=== PATIENT | male | born 1950 | race Caucasian/White ===

== ENCOUNTER → 2018-12-31 11:21 | Outpatient (CLI) | payer MEDICARE, BC, SELFPAY ==
[2018-12-31 11:51] LABS: Add Manual Diff / Slide Review NO; Basophils Absolute Auto 0 /uL (0-100); Basophils Percent Auto 0.3 % (0-2); Eosinophils Absolute Auto 300 /uL (0-450); Eosinophils Percent Auto 4.8 % (2-4); Hematocrit 46.6 % (41-53); Lymphocytes Absolute Auto 1700 /uL (1100-4500); Lymphocytes Percent Auto 31.3 % (25-40); Mean Corpuscular HGB Conc 34.2 % (30-36); Mean Corpuscular Hemoglobin 31.2 PG (26-34); Mean Corpuscular Volume 91.2 fL (80-100); Monocytes Absolute Auto 400 /uL (0-900); Neutrophils Absolute Auto 3000 /uL (1500-7000); Neutrophils Percent Auto 55.6 % (50-75); Platelet Count 248 X10^3/uL (150-400); Red Blood Cell Count 5.12 X10^6/uL (4.5-5.9); Red Cell Distribution Width 13.6 % (11.6-14.8); White Blood Cell Count 5.5 X10^3/uL (4.5-11.0)
[2018-12-31 12:35] LABS: BUN Creatinine Ratio 25.6 (6-22); Blood Urea Nitrogen 23 mg/dL (9-20); Calcium 9.5 mg/dL (8.4-10.2); Carbon Dioxide 28 mmol/L (22-32); Chloride 101 mmol/L (98-107); Estimated Glomerular Filt Rate > 60.0 mL/min (>60); Glucose 101 mg/dL (80-110); HEMOLYSIS < 15 (0-50); Potassium 4.8 mmol/L (3.4-5.1); Sodium 138 mmol/L (137-145)
== END ==
DX: N50.819 Testicular pain, unspecified (principal); G89.29 Other chronic pain; Z01.818 Encounter for other preprocedural examination
CPT/HCPCS: 36415; 80048; 85025; 93005

== ENCOUNTER → 2019-02-23 09:22 | Outpatient (CLI) | payer MEDICARE, BC, SELFPAY ==
[2019-02-23 11:01] LABS: BUN Creatinine Ratio 28.8 (6-22); Blood Urea Nitrogen 23 mg/dL (9-20); Calcium 9.1 mg/dL (8.4-10.2); Carbon Dioxide 26 mmol/L (22-32); Chloride 103 mmol/L (98-107); Estimated Glomerular Filt Rate > 60.0 mL/min (>60); Glucose 107 mg/dL (80-110); HEMOLYSIS < 15 (0-50); Potassium 4.2 mmol/L (3.4-5.1); Sodium 137 mmol/L (137-145)
== END ==
PROVIDERS: Visit Provider Internal Medicine
DX: T70.29XA Other effects of high altitude, initial encounter (principal); R06.02 Shortness of breath; R03.0 Elevated blood-pressure reading, without diagnosis of hypertension
CPT/HCPCS: 36415; 80048

== ENCOUNTER → 2019-02-27 14:10 | Outpatient (CLI) | payer MEDICARE, BC, SELFPAY ==
--- NOTE | 2019-02-27 | DI.RAD.S_ITS ---
PROCEDURE: XR CHEST 2V INDICATIONS: SOB TECHNIQUE: 2 views of the chest were acquired. COMPARISON: [facility], , CHEST 2 VIEW, 04/22/2017, 12:42. FINDINGS: Surgical changes and devices: None. Lungs and pleura: Lungs are clear. No pleural effusions or pneumothorax. Mediastinum: Mediastinal contours are normal. Heart size is normal. Bones and chest wall: No suspicious bony abnormalities. Soft tissues appear unremarkable. IMPRESSION: No acute pulmonary process. Dictated by: Shaila Howard M.D. on 02/27/2019 at 16:38 Approved by: Shaila Howard M.D. on 02/27/2019 at 16:39
[2019-02-27 16:03] LABS: B Type Natriuretic Peptide < 100 (<100)
== END ==
PROVIDERS: PCP Physician Assistant; Visit Provider Internal Medicine
DX: T70.29XA Other effects of high altitude, initial encounter (principal); R06.02 Shortness of breath
CPT/HCPCS: 36415; 71046; 83880

== ENCOUNTER → 2019-03-01 07:56 | Outpatient (CLI) | payer MEDICARE, BC, SELFPAY ==
--- NOTE | 2019-03-01 | DI.ECHO.S_ITS ---
[place] +---------+ Hospital +---------+ : : [address] : [address] : : : : [id number] : : : : Phone: [phone]+ Echocardiogram Report + + :Name: LAURA SANCHEZ Study Date: 03/01/2019 Height: 72 in : :[facility] Exam Location: IS Weight: 210 lb : : Gender: Male BSA: 2.2 m2 : :: 1950 Age: 68 yrs BP: 142/95 mmHg: :Reason For Study: SOB : :Ordering Physician: Charlotte Ramos Performed By: Cecilia Page : + + Interpretation Summary Left ventricular wall thickness is mildly increased. The left ventricle is hyperdynamic. The ejection fraction is estimated to be 70-75%. Diastolic parameters suggest a relaxation abnormality of the left ventricle, consistent with probable normal filling pressures. The right ventricle is normal in size and function. Pulmonary artery pressures cannot be estimated because of the lack of a measurable TR jet velocity. Both atria are normal in size. There is no significant valvular heart disease. The aortic root is mildly dilated. The ascending aorta is moderately enlarged. Procedure: A two-dimensional transthoracic echocardiogram with color flow and Doppler was performed. The study quality was technically adequate. There is no prior echocardiogram noted for this patient. The patient was in normal sinus rhythm during the exam. Left Ventricle: The left ventricle is normal in size. Left ventricular wall thickness is mildly increased. The left ventricle is hyperdynamic. The ejection fraction is estimated to be 70-75%. Diastolic parameters suggest a relaxation abnormality of the left ventricle, consistent with probable normal filling pressures. Right Ventricle: The right ventricle is normal in size and function. Atria: Both atria are normal in size. There is no Doppler evidence for an interatrial shunt. Mitral Valve: The mitral valve is grossly normal. There is trace mitral regurgitation. Aortic Valve: The aortic valve is grossly normal. The aortic valve opens well. There is mild aortic valve sclerosis. No aortic regurgitation is present. Tricuspid Valve: The tricuspid valve is not well visualized, but is grossly normal. No tricuspid regurgitation. Pulmonary artery pressures cannot be estimated because of the lack of a measurable TR jet velocity. Pulmonic Valve: The pulmonic valve is not well visualized. There is no significant valvular heart disease. Great Vessels: The aortic root is mildly dilated. The ascending aorta is moderately enlarged. The aortic arch is normal in size. The pulmonary is not well visualized. The IVC is dilated (diameter is greater than 2.1 cm) yet it collapses greater than 50% with a sniff. This suggests a right atrial pressure of 8 mm Hg. Pericardium/ Pleura There is no pericardial effusion. There is no pleural effusion. MMode/2D Measurements & Calculations LVIDd: 4.8 cm Ao root diam: 4.5 cm LVIDs: 3.4 cm asc Aorta Diam: 4.4 cm FS: 29.9 % Ao Arch Diam (Prox Trans): 2.8 cm IVSd: 1.2 cm LVPWd: 1.2 cm LV christine. diameter/BSA (cm/m^2): 2.2 LV sys. diameter/BSA (cm/m^2): 1.5 LA A2 area: 21.9 cm2 RA long axis: 5.5 cm LA A4 area: 20.6 cm2 RA area: 15.2 cm2 LA length (vol): 5.5 cm RA vol: 35.8 ml LA vol: 69.6 ml RA : 16.5 ml/m2 LA vol index: 32.0 ml/m2 IVC diam: 2.5 cm RVD1 (basal): 3.7 cm RVD2 (mid): 4.0 cm Doppler Measurements & Calculations Ao V2 max: 170.4 cm/sec LVOT Max Javier: 116.7 cm/sec Ao V2 mean: 110.9 cm/sec LV V1 max P.4 mmHg Ao max P.6 mmHg LV V1 VTI: 23.1 cm Ao mean P.5 mmHg sev ratio: 0.85 Ao V2 VTI: 27.1 cm MV E max javier: 55.7 cm/sec PA V2 max: 74.6 cm/sec MV A max javier: 95.1 cm/sec PA V2 mean: 56.1 cm/sec MV E/A: 0.59 PA mean P.3 mmHg Med Peak E' Javier: 5.1 cm/sec PA Accel Time: 0.04 sec E/E' med: 11.0 Lat Peak E' Javier: 8.8 cm/sec E/E' lat: 6.3 E/e' average: 8.7 MV dec time: 0.29 sec MV P1/2t: 86.5 msec MV P1/2t max javier: 57.1 cm/sec MVA(P1/2t): 2.5 cm2 Reading Physician:06:16 PM
== END ==
PROVIDERS: PCP Physician Assistant; Visit Provider Internal Medicine
DX: I35.8 Other nonrheumatic aortic valve disorders (principal); R06.02 Shortness of breath
CPT/HCPCS: 93306

== ENCOUNTER → 2019-05-06 09:41 | Outpatient (CLI) | payer MEDICARE, BC, SELFPAY ==
[2019-05-06 12:11] LABS: Prostate Specific Antigen 2.34 ng/mL (0.10-4.00)
== END ==
PROVIDERS: PCP Physician Assistant; Visit Provider Urology
DX: Z12.5 Encounter for screening for malignant neoplasm of prostate (principal)
CPT/HCPCS: 36415; 84153; G0103

== ENCOUNTER 2019-07-20 22:27 | Emergency (ER) | payer MEDICARE, BC, SELFPAY ==
[2019-07-20] VITALS (8 sets, daily range): BP systolic 127–181; BP diastolic 64–111; PULSE 73–86; RESP 15–18; O2SAT 94–99; BMI 28.8
--- NOTE | 2019-07-20 22:28 | ED_ITS ---
HPI - Chest Pain General Chief Complaint: Chest Pain Stated Complaint: chest pain Time Seen by Provider: 07/20/19 22:28 Source: patient and family Mode of arrival: Ambulatory Limitations: no limitations History of Present Illness HPI narrative: 69-year-old male former smoker with history of hypertension and hyperlipidemia presents with his in the chief complaint of 2 days of gradually worsening anterior chest pressure with radiation across his chest and into his left shoulder. His symptoms worsened with exertion and improved with rest. Additional cardiac equivalent include shortness of breath, fatigue and nausea which all worsen with exertion. At most his discomfort was rated as a 7 or 8/10, on arrival his symptoms worsened while walking in from the registration desk. He denies any fever or chills MD complaint: chest pain Onset (ago): day(s) Duration: intermittent and progressively worsening Onset: during rest Pain location: left chest Severity: moderate Quality: aching and heaviness Pain radiation: LUE Related Data Home Medications Medication Instructions Recorded Confirmed cetirizine 10 mg PO QDAYP PRN #0 04/22/17 lisinopril 10 mg PO QDAY #0 04/22/17 simvastatin 10 mg PO HS #0 04/22/17 Allergies Allergy/AdvReac Type Severity Reaction Status Date / Time latex [LATEX] Allergy Unknown Verified 07/20/19 22:38 meperidine [MEPERIDINE] Allergy Unknown SKIN RASH Verified 07/20/19 22:38 Review of Systems Constitutional Constitutional: Denies chills, Denies fatigue, Denies fever(s), Denies frequent falls, Denies lethargy and Denies weakness Eyes Eyes: Denies change in vision, Denies eye discharge, Denies irritation and Denies loss of vision ENT Ears, Nose, Mouth, and Throat: Denies change in voice, Denies dizziness, Denies neck pain, Denies sore throat and Denies throat swelling Cardiovascular Cardiovascular: Reports chest pain, Denies irregular heart rhythm, Denies lightheadedness, Denies palpitations, Denies dyspnea, Reports dyspnea on exertio n and Denies orthopnea Respiratory Respiratory: Denies cough, Denies dyspnea, Reports dyspnea on exertion and Denies wheezing Gastrointestinal Gastrointestinal: Denies abdominal pain, Denies change in bowel habits, Denies diarrhea, Denies nausea and Denies vomiting Genitourinary Genitourinary: Denies hematuria, Denies flank pain, Denies urinary incontinence and Denies urinary urgency Musculoskeletal Musculoskeletal: Denies back pain, Denies muscle weakness, Denies neck pain, Denies numbness and Denies tingling Integumentary/Breasts Skin/Breast: Denies pruritus, Denies erythema, Denies rash and Denies wounds Neurologic Neurologic: Denies behavioral changes, Denies confusion, Denies dizziness, Denies frequent falls, Denies loss of vision, Denies numbness, Denies tingling and Denies weakness Psychiatric Psychiatric: Denies anxiety, Denies behavioral changes, Denies confusion, Denies depression, Denies homicidal ideation and Denies suicidal ideation Endocrine Endocrine: Denies fatigue, Denies flushing and Denies palpitations Hematologic/Lymphatic Hematologic/Lymphatic: Denies easy bruising Allergic/Immunologic Allergic/Immunologic: Denies urticaria, Denies throat swelling and Denies wheezing Patient History Social History Smoking Status: Former smoker Exam Narrative Exam Narrative: GENERAL: [69] year old patient appears stated age. Well- nourished, well-developed patient, in mild distress. HEAD: Atraumatic. Normocephalic. EYES: Pupils equal round and reactive. Extraocular motions intact. No scleral icterus. No injection or drainage. ENT: Nose without bleeding, purulent drainage. Throat without erythema, tonsillar hypertrophy or exudate. Airway patent. NECK: Trachea midline. Non tender CARDIOVASCULAR: Regular rate and rhythm without murmurs, gallops, or rubs. RESPIRATORY: Clear to auscultation. Breath sounds equal bilaterally. No wheezes, rales, or rhonchi. GASTROINTESTINAL: Abdomen soft, non-tender, nondistended. EXTREMITIES: No edema or joint tenderness. BACK: Nontender without deformity or crepitance. No flank tenderness. NEURO: AOx3. SKIN: No rash or erythema of visible areas Initial Vital Signs Initial Vital Signs: Vital Signs Pulse Rate 82 07/20/19 22:38 Respiratory Rate 15 07/20/19 22:38 Blood Pressure 181/111 H 07/20/19 22:38 Pulse Oximetry 98 07/20/19 22:38 Course Orders Ordered: ED Orders 07/20/19 22:39 XR chest 1V Stat EKG-12 Lead Stat 07/20/19 22:41 B Type Natriuretic Peptide Stat Complete Blood Count AUTO DIFF Stat Comprehensive Metabolic Panel Stat D Dimer Stat Lipase Stat Partial Thromboplastin Time Stat Prothrombin Time INR Stat Troponin & CK Cardiac Panel Stat 07/21/19 EKG-12 Lead Stat Sodium Chloride (Normal Saline 0.9%) 1,000 mls @ 150 mls/hr IV CONT CLARENCE Last Admin: 07/20/19 22:44 Dose: 150 mls/hr Documented by: RANDY Heparin Sodium/Dextrose (Heparin Drip) 25,000 unit in 500 mls @ 20 mls/hr IV CONT CLARENCE; Protocol Last Admin: 07/20/19 23:46 Dose: 1,000 units/hr, 20 mls/hr Documented by: JOHN Discontinued Medications Aspirin (Aspirin Chew) 324 mg PO NOW ONE Stop: 07/20/19 22:39 Last Admin: 07/20/19 22:49 Dose: 324 mg Documented by: RANDY Atorvastatin Calcium (Lipitor) 40 mg PO NOW ONE Stop: 07/20/19 23:25 Last Admin: 07/21/19 00:07 Dose: 40 mg Documented by: JOHN Heparin Sodium (Porcine) (Heparin) 7,500 unit IV NOW ONE Stop: 07/20/19 23:24 Last Admin: 07/20/19 23:38 Dose: 7,500 unit Documented by: JOHN Metoprolol Tartrate (Lopressor) 5 mg IV NOW ONE Stop: 07/20/19 22:39 Nitroglycerin (Nitrostat) 0.4 mg SL [id number] PRN PRN Reason: Chest Pain Last Admin: 07/21/19 00:35 Dose: 0.4 mg Documented by: Admin: 07/20/19 23:07 Dose: 0.4 mg Documented by: Admin: 07/20/19 22:47 Dose: 0.4 mg Documented by: RANDY Reevaluation(s) Reevaluation #1: patient demonstrating tremendously improved symptoms after above-stated therapies. Just a vague hint of some discomfort at this point, less than a 1 Consultations Consultation #1: Call to Cardiology at [facility]. After discussing the case they sure the opinion the patient appropriate for transfer call to [facility] hospitalist whom is happy to accept Vital Signs Vital signs: Vital Signs - 8 hr 07/20/19 22:38 07/20/19 22:47 07/20/19 22:51 Pulse Rate 82 76 86 Respiratory Rate 15 18 Blood Pressure 181/111 H 181/111 H Blood Pressure [Left Arm] 150/91 H Pulse Oximetry 98 95 07/20/19 23:03 07/20/19 23:15 07/20/19 23:30 Pulse Rate 76 82 76 Respiratory Rate 16 17 16 Blood Pressure Blood Pressure [Left Arm] 138/90 141/83 H 138/92 H Pulse Oximetry 99 95 96 07/20/19 23:45 07/20/19 23:50 07/21/19 00:45 Pulse Rate 73 77 72 Respiratory Rate 16 18 16 Blood Pressure Blood Pressure [Left Arm] 135/64 127/82 142/84 H Pulse Oximetry 97 94 96 MDM - Chest Pain Lab Data Result diagrams: 07/20/19 22:41 07/20/19 22:41 Labs: Lab Results 07/20/19 07/20/19 07/20/19 Range/Units 22:41 22:41 22:41 WBC 5.9 (4.5-11.0) X10^3/uL RBC 4.73 (4.5-5.9) X10^6/uL Hgb 15.2 (13.5-17.5) g/dL Hct 43.5 (41-53) % MCV 91.9 (80-100) fL MCH 32.1 (26-34) PG MCHC 34.9 (30-36) % RDW 13.4 (11.6-14.8) % Plt Count 275 (150-400) X10^3/uL Neut % (Auto) 49.8 L (50-75) % Lymph % (Auto) 31.2 (25-40) % Larue % (Auto) 10.8 (3-14) % Eos % (Auto) 5.1 H (2-4) % Baso % (Auto) 3.1 H (0-2) % Neut # (Auto) 2900 (8317-6546) /uL Lymph # (Auto) 1800 (5799-9314) /uL Larue # (Auto) 600 (0-900) /uL Eos # (Auto) 300 (0-450) /uL Baso # (Auto) 200 H (0-100) /uL PT 9.9 L (10.1-12.7) SECONDS INR 0.9 (0.9-1.3) APTT 29 (26.4-36.2) SECONDS D-Dimer 501 H (<230) ng/mL Sodium (137-145) mmol/L Potassium (3.4-5.1) mmol/L Chloride (98-107) mmol/L Carbon Dioxide (22-32) mmol/L BUN (9-20) mg/dL Creatinine (0.66-1.25) mg/dL Estimated GFR (>60) mL/min BUN/Creatinine Ratio (6-22) Glucose (80-110) mg/dL Calcium (8.4-10.2) mg/dL Total Bilirubin (0.2-1.3) mg/dL AST (17-59) IU/L ALT (<50) IU/L Alkaline Phosphatase (38-126) U/L Total Creatine Kinase (55-170) U/L CK-MB (CK-2) CK-MB (CK-2) Rel Index Troponin I (0.01-0.034) ng/mL B-Natriuretic Peptide < 100 (<100) Total Protein (6.3-8.2) g/dL Albumin (3.5-5.0) g/dL Globulin (1.7-4.1) g/dL Albumin/Globulin Ratio (1.0-2.8) Lipase (23-300) U/L 07/20/19 Range/Units 22:41 WBC (4.5-11.0) X10^3/uL RBC (4.5-5.9) X10^6/uL Hgb (13.5-17.5) g/dL Hct (41-53) % MCV (80-100) fL MCH (26-34) PG MCHC (30-36) % RDW (11.6-14.8) % Plt Count (150-400) X10^3/uL Neut % (Auto) (50-75) % Lymph % (Auto) (25-40) % Larue % (Auto) (3-14) % Eos % (Auto) (2-4) % Baso % (Auto) (0-2) % Neut # (Auto) (0715-7132) /uL Lymph # (Auto) (3166-9580) /uL Larue # (Auto) (0-900) /uL Eos # (Auto) (0-450) /uL Baso # (Auto) (0-100) /uL PT (10.1-12.7) SECONDS INR (0.9-1.3) APTT (26.4-36.2) SECONDS D-Dimer (<230) ng/mL Sodium 138 (137-145) mmol/L Potassium 4.0 (3.4-5.1) mmol/L Chloride 102 (98-107) mmol/L Carbon Dioxide 28 (22-32) mmol/L BUN 21 H (9-20) mg/dL Creatinine 0.90 (0.66-1.25) mg/dL Estimated GFR > 60.0 (>60) mL/min BUN/Creatinine Ratio 23.3 H (6-22) Glucose 100 (80-110) mg/dL Calcium 8.8 (8.4-10.2) mg/dL Total Bilirubin 0.7 (0.2-1.3) mg/dL AST 29 (17-59) IU/L ALT 34 (<50) IU/L Alkaline Phosphatase 58 (38-126) U/L Total Creatine Kinase 45 L (55-170) U/L CK-MB (CK-2) TNP CK-MB (CK-2) Rel Index TNP Troponin I < 0.012 (0.01-0.034) ng/mL B-Natriuretic Peptide (<100) Total Protein 7.1 (6.3-8.2) g/dL Albumin 4.2 (3.5-5.0) g/dL Globulin 2.9 (1.7-4.1) g/dL Albumin/Globulin Ratio 1.4 (1.0-2.8) Lipase 80 (23-300) U/L Critical Care Time Critical Care Time Critical Care Time: Yes Total Critical Care Time: 30 Attestation: The high probability of a clinically significant, sudden or life threatening deterioration of the [CV] system(s) required my full and direct attention, intervention and personal management. The aggregate critical care time was [30] minutes. This time is in addition to time spent performing reported procedures but includes the following: [x] Data Review and interpretation [x] Patient assessment and monitoring of vital signs [x] Documentation [x] Medication orders and management Discharge Plan Departure Prescriptions: No Action simvastatin 10 MG tablet 10 mg PO HS Qty: 0 RF: 0 lisinopril 10 MG tablet 10 mg PO QDAY Qty: 0 RF: 0 cetirizine 10 MG tablet 10 mg PO QDAYP PRNQty: 0 RF: 0
--- NOTE | 2019-07-20 22:39 | DI.RAD.S_ITS ---
PROCEDURE: XR CHEST 1V INDICATIONS: chest pains with shortness of breath TECHNIQUE: One view of the chest was acquired. COMPARISON: [facility], CHEST 2 VIEW, 04/22/2017, 12:42. [facility], , CHEST 2 VIEW, 01/13/2017, 10:35. [facility], , XR CHEST 2V, 02/27/2019, 14:45. FINDINGS: Surgical changes and devices: Cholecystectomy clips are seen. Lungs and pleura: An incomplete inspiratory result is noted, causing a crowded appearance to the lung markings. No focal infiltrates are seen. No pneumothorax or significant pleural effusions are seen. Mediastinum: Mediastinal contours appear normal. Heart size is normal. Bones and chest wall: No suspicious bony lesions. Age-appropriate bony degenerative changes are seen. Overlying soft tissues appear unremarkable. IMPRESSION: Portable chest within normal limits. Dictated by: Wade Little M.D. on 07/21/2019 at 8:12 Approved by: Wade Little M.D. on 07/21/2019 at 8:13
[2019-07-20] MEDS: SODIUM CHLORIDE 0.9% 1,000 ML 150 ML IV (22:44)
[2019-07-20] MEDS: NITROGLYCERIN 0.4 MG SL TAB SL ×2 (22:47→23:07)
[2019-07-20] MEDS: ASPIRIN 81 MG CHEW TAB 324 MG PO (22:49)
[2019-07-20 22:54] LABS: Add Manual Diff / Slide Review NO; Basophils Absolute Auto 200 /uL (0-100); Basophils Percent Auto 3.1 % (0-2); Eosinophils Absolute Auto 300 /uL (0-450); Eosinophils Percent Auto 5.1 % (2-4); Hematocrit 43.5 % (41-53); Hemoglobin 15.2 g/dL (13.5-17.5); Lymphocytes Absolute Auto 1800 /uL (1100-4500); Lymphocytes Percent Auto 31.2 % (25-40); Mean Corpuscular HGB Conc 34.9 % (30-36); Mean Corpuscular Hemoglobin 32.1 PG (26-34); Mean Corpuscular Volume 91.9 fL (80-100); Monocytes Absolute Auto 600 /uL (0-900); Monocytes Percent Auto 10.8 % (3-14); Neutrophils Absolute Auto 2900 /uL (1500-7000); Neutrophils Percent Auto 49.8 % (50-75); Platelet Count 275 X10^3/uL (150-400); Red Blood Cell Count 4.73 X10^6/uL (4.5-5.9); Red Cell Distribution Width 13.4 % (11.6-14.8); White Blood Cell Count 5.9 X10^3/uL (4.5-11.0)
[2019-07-20 22:58] LABS: INR 0.9 (0.9-1.3); Prothrombin Time 9.9 SECONDS (10.1-12.7)
[2019-07-20 23:01] LABS: D Dimer 501 ng/mL (<230); PTT Partial Thromboplastin Tim 29 SECONDS (26.4-36.2)
[2019-07-20 23:02] LABS: Alanine Aminotransferase 34 IU/L (<50); Albumin 4.2 g/dL (3.5-5.0); Albumin Globulin Ratio 1.4 (1.0-2.8); Alkaline Phosphatase 58 U/L (38-126); Aspartate Aminotransferase 29 IU/L (17-59); BUN Creatinine Ratio 23.3 (6-22); Bilirubin Total 0.7 mg/dL (0.2-1.3); Blood Urea Nitrogen 21 mg/dL (9-20); Calcium 8.8 mg/dL (8.4-10.2); Carbon Dioxide 28 mmol/L (22-32); Chloride 102 mmol/L (98-107); Creatine Kinase 45 U/L (55-170); Estimated Glomerular Filt Rate > 60.0 mL/min (>60); Globulin 2.9 g/dL (1.7-4.1); Glucose 100 mg/dL (80-110); HEMOLYSIS 21 (0-50); Lipase 80 U/L (23-300); Sodium 138 mmol/L (137-145); Total Protein 7.1 g/dL (6.3-8.2)
[2019-07-20 23:13] LABS: B Type Natriuretic Peptide < 100 (<100)
[2019-07-20 23:14] LABS: Troponin I < 0.012 ng/mL (0.01-0.034)
[2019-07-20] MEDS: HEPARIN 5,000 UNIT/ML VIAL 7500 UNIT IV (23:38)
[2019-07-20] MEDS: HEPARIN DRIP 25,000 UNIT/500 ML IV.SOLN 20 UNIT IV (23:46)
[2019-07-21] MEDS: ATORVASTATIN 20 MG TABLET 40 MG PO (00:07)
[2019-07-21] MEDS: NITROGLYCERIN 0.4 MG SL TAB SL (00:35)
[2019-07-21 00:45] VITALS: BP 142/84; PULSE 72; RESP 16; O2SAT 96
== END 2019-07-21 01:15 | disposition short-term general hospital (02) ==
PROVIDERS: Emergency Provider Emergency Medicine; PCP Physician Assistant
DX: R07.9 Chest pain, unspecified (principal); I10 Essential (primary) hypertension; R06.02 Shortness of breath
CPT/HCPCS: 36415; 71045; 80053; 82550; 82553; 83690; 83880; 84484; 85025; 85379; 85610; 85730; 93005; 96361; 96365; 96366; 96375; 99284; 99291; J1644

== ENCOUNTER 2019-10-24 09:35 | Day surgery (SDC) | payer MEDICARE, BC, SELFPAY ==
--- NOTE | 2019-10-24 | PATH_ITS ---
[facility] Accession Number: [id number] . 01 Material submitted: . rectum - RECTUM NEAR ANUS POLYP . 01 Clinical history: . SCREENING COLONOSCOPY . 02 Diagnosis: Rectum Near Anus, Polyp: Tubular adenoma. [facility] 10/25/2019 1439 Local . 02 Electronically signed: . Lynda Vo MD, Pathologist NPI- [id number] . 01 Gross description: . RECTUM NEAR ANUS POLYP: Received in formalin is 1 fragment(s) of varela, soft tissue measuring 0.4 x 0.3 x 0.3 cm submitted entirely in 1 cassette(s) /[facility] [place] 10/24/2019 2100 Local . 02 Pathologist provided ICD-10: K63.5, Z12.11 . 02 CPT . 156702 Performed at: 01 [facility] [address] [id number] MD Sean Irby MD Phone: [phone] Performed at: 02 [facility] [place] [address] [place], [place] [id number] MD Tonya Trent MD Phone: [phone]
[2019-10-24] MEDS: SODIUM CHLORIDE 0.9% 1,000 ML 200 ML IV (09:58)
[2019-10-24 10:14] VITALS: BP 127/84; PULSE 79; RESP 16; TEMP 35.9; O2SAT 97; BMI 28.5
--- NOTE | 2019-10-24 10:57 | PM.HP.1 ---
History of Present Illness History of Present Illness Date Patient Seen: 10/24/19 Time Patient Seen: 10:57 Chief complaint: [address] SCREENING COLONOSCOPY Narrative: Patient is a gentleman here for screening colonoscopy. He had polyps removed in the past. It is been about 5 years since his last exam. Patient History Medical History Arthritis (Acute) Basal cell carcinoma (Acute) Bladder cancer (Acute) Bone spur (Acute) Bowel obstruction (Acute) Cataract of left eye (Acute) Constipation (Acute) Cough (Acute) Frozen shoulder (Acute) Gallbladder disease (Acute) GERD (gastroesophageal reflux disease) (Acute) History of epididymitis (Acute) History of pneumonia (Acute) HTN (hypertension) (Acute) Hyperlipemia (Acute) Inguinal hernia (Acute) Melanoma in situ (Acute) Urinary urgency (Acute) Surgical History Cataract extraction status of right eye (Acute) H/O varicose vein ligation (Acute) History of ERCP (Acute) History of umbilical hernia repair (Acute) History of YAG laser capsulotomy of lens of left eye (Acute) Hx of tonsillectomy (Acute) Hx of transurethral destruction of bladder lesion (Acute) Family & Social History Social History: household members spouse Tobacco & Substance use: Tobacco type cigarettes Smoking Status Former smoker Smoking packs per day 0.5 alcohol intake current alcohol intake frequency a few times a week Substance Use Type does not use Meds Home Medications and Allergies Home Medications Medication Instructions Recorded Confirmed Type lisinopril 10 mg PO QDAY #0 04/22/17 10/24/19 History amitriptyline 30 mg PO BEDTIME 10/24/19 10/24/19 History aspirin [Aspirin Low Dose] 81 mg PO DAILY 10/24/19 10/24/19 History atorvastatin 40 mg PO BEDTIME 10/24/19 10/24/19 History azelastine 1 spray INTRANASAL BID 10/24/19 10/24/19 History ibuprofen 800 mg PO Q8H 10/24/19 10/24/19 History loratadine 10 mg PO DAILY 10/24/19 10/24/19 History metoprolol tartrate 25 mg PO DAILY 10/24/19 10/24/19 History omeprazole magnesium [Prilosec OTC] 20 mg PO DAILY 10/24/19 10/24/19 History Allergies Allergy/AdvReac Type Severity Reaction Status Date / Time latex [LATEX] Allergy Unknown Verified 10/24/19 09:59 meperidine [MEPERIDINE] Allergy Unknown SKIN RASH Verified 10/24/19 09:59 Review of Systems Review of Systems ROS: Yes All systems reviewed with the patient and are negative except as otherwise documented Cardiovascular Comments: The patient was in the emergency room in July with chest pain and was transferred to [facility] where he underwent extensive cardiac evaluation per his history. This included echocardiogram and angiography. He was told that his heart is normal. Exam Vital Signs (past 8 hours): - 10/24/19 10:14 Temperature 96.7 F L Pulse Rate 79 Respiratory Rate 16 Blood Pressure 127/84 Pulse Oximetry 97 Oxygen Delivery Method Room Air Narrative Exam Narrative: Pleasant cooperative patient no apparent distress. Lungs are clear to auscultation. No rales or rhonchi. Heart regular rate and rhythm no murmur gallop. Abdomen is soft nontender without mass. No obvious hernias. Patient is alert and oriented x3. Assessment & Plan Assessment & Plan narrative: The patient for a screening colonoscopy. I have discussed the procedure with them. Risks of bleeding, perforation which would necessitate major operation, failure to find remove all lesions, the potential tattoo were all discussed. All questions were answered. They wished to proceed.
--- NOTE | 2019-10-24 11:00 | PM.PREOP ---
Pre-operative Note Interval Note History & Physical reviewed/Exam performed by Physician: Yes Changes to H&P: No ASA Class (for procedural sedation): II
[2019-10-24] MEDS: fentaNYL 250 MCG/5 ML INJ IV (11:12)
[2019-10-24] MEDS: MIDAZOLAM 5 MG/ML VIAL 1 MG IV (11:12)
--- NOTE | 2019-10-24 11:48 | P.OP.ENDO_ITS ---
Operative Date/Time/Diagnoses Date of procedure: 10/24/19 Time of procedure: 11:48 Pre-op diagnosis: Screening exam. Personal history of polyps. Last exam 5 years ago. Post-op diagnosis: same (Rectal polyp near anus. Cecum not well visualized) Procedure & Clinicians Study performed: Colonoscopy with hot snare polypectomy Same procedure as scheduled: Yes Indications: Screening Surgeon: Ismael Tadeo Procedure Notes SCOAP/Timeout: Performed Procedure in detail: The patient was placed in the left lateral decubitus position and underwent IV sedation directed by the surgeon consisting of fentanyl and Versed. Digital exam was unremarkable except the prostate is mildly enlarged. The scope was inserted and advanced through the rectum into the sigmoid, descending, transverse, and ascending colon. Patient was noted to have diverticulosis of the sigmoid colon. The cecum was reached identified by the ileocecal valve. I could not see the rest of the cecum very well due to the patient's anatomy. After trying for about 10 minutes to manipulate the scope to see better I a abandoned it and began to back out. The scope was gradually brought out. No Polyps were found until I reach the rectum. The scope adilene ramsey was retroflexed in the rectum. The appearance was remarkable for a polyp near the anal verge which I snared with a hot snare. I cauterized the edges.. The scope was removed and the patient tolerated the procedure well. Prep was adequate. Scope withdrawal time: Just over 8 minutes Sedation minutes: 33 Findings: diverticulosis and polyp (Near anus) Specimen(s): other (Polyps) Complications: none Post-procedure Recommendations: Colonscopy in 3 years (Due to the polyp near the anus and inability to see the cecum well) Follow up: as needed Disposition: PACU
[2019-10-24 11:53] VITALS: BP 102/76; PULSE 83; RESP 9; TEMP 36.4; O2SAT 95
[2019-10-24 11:58] VITALS: BP 100/71; PULSE 80; RESP 15; O2SAT 95
[2019-10-24 12:03] VITALS: BP 107/69; PULSE 76; RESP 14; O2SAT 96
--- NOTE | 2019-10-24 12:10 | SUR.PHASEI ---
1207 stable, A&O, asymptomatic, tolerated juice well. Pleasant and talking
[2019-10-24 12:15] VITALS: BP 100/72; PULSE 80; RESP 20; TEMP 36.4; O2SAT 94
== END 2019-10-24 12:23 | disposition home or self-care (01) ==
PROVIDERS: PCP Physician Assistant; Referring Provider Physician Assistant; Visit Provider Specialist
PROC: 0DJD8ZZ Inspection of Lower Intestinal Tract, Via Natural or Artificial Opening Endoscopic (ICD-10-PCS; CPT 45378; principal; 2019-10-24 10:45)
DX: Z12.11 Encounter for screening for malignant neoplasm of colon (principal); Z86.010 Personal history of colon polyps; K57.30 Diverticulosis of large intestine without perforation or abscess without bleeding; D12.8 Benign neoplasm of rectum
CPT/HCPCS: 45385; 99152; 99153; J2250; J3010

== ENCOUNTER → 2019-10-30 11:39 | Outpatient (CLI) | payer MEDICARE, BC, SELFPAY ==
[2019-10-30 13:44] LABS: Prostate Specific Antigen 3.38 ng/mL (0.10-4.00)
== END ==
PROVIDERS: PCP Physician Assistant; Referring Provider Urology; Visit Provider Urology
DX: Z12.5 Encounter for screening for malignant neoplasm of prostate (principal)
CPT/HCPCS: 36415; 84153

== ENCOUNTER → 2019-11-01 07:59 | Outpatient (CLI) | payer MEDICARE, BC, SELFPAY ==
--- NOTE | 2019-11-01 | DI.MG.S_ITS ---
MALE BILATERAL DIGITAL DIAGNOSTIC MAMMOGRAM 3D/2D: 11/01/2019 CLINICAL: Right breast lump. No prior exams were available for comparison. There is gynecomastia in both breasts that appears moderate on the right and minimal on the left. Right sided gynecomastia correlates with area of clinical concern and palpable abnormality. No significant masses, calcifications, or other findings are seen in either breast. IMPRESSION: Bilateral right greater than left gynecomastia. There is no mammographic evidence of malignancy. Recommend clinical follow up for continued symptomatology. This exam was interpreted at Station ID: [id number]. NOTE: For mammograms, a report in lay terms will be sent to the patient. Approximately 15% of breast malignancies will not be visualized mammographically. In the management of a palpable breast mass, a negative mammogram must not discourage biopsy of a clinically suspicious lesion. Electronically Signed By: Won Narvaez M.D. aty/:11/01/2019 09:05:19 ACR BI-RADS Category 2: Benign Finding(s) [id number]
== END ==
PROVIDERS: PCP Physician Assistant; Referring Provider Physician Assistant; Visit Provider Physician Assistant
DX: N62 Hypertrophy of breast (principal)
CPT/HCPCS: 77066; G0279

== ENCOUNTER → 2020-01-13 09:28 | Outpatient (CLI) | payer MEDICARE, BC, SELFPAY ==
[2020-01-17 05:37] LABS: Percent Free Testosterone 1.36 % (1.50-4.20); Testosterone Free 2.13 ng/dL (5.00-21.00); Testosterone Total 156.4 ng/dL (264.0-916.0)
== END ==
PROVIDERS: PCP Physician Assistant; Referring Provider Physician Assistant; Visit Provider Physician Assistant
DX: E34.9 Endocrine disorder, unspecified (principal)
CPT/HCPCS: 36415; 84402; 84403

== ENCOUNTER → 2020-04-27 07:42 | Outpatient (CLI) | payer MEDICARE, BC, SELFPAY ==
[2020-04-27 08:28] LABS: Add Manual Diff / Slide Review NO; Basophils Absolute Auto 100 /uL (0-100); Basophils Percent Auto 1.8 % (0-2); Eosinophils Absolute Auto 400 /uL (0-450); Hematocrit 48.6 % (41-53); Hemoglobin 16.1 g/dL (13.5-17.5); Lymphocytes Absolute Auto 1800 /uL (1100-4500); Lymphocytes Percent Auto 30.9 % (25-40); Mean Corpuscular HGB Conc 33.2 % (30-36); Mean Corpuscular Hemoglobin 30.4 PG (26-34); Mean Corpuscular Volume 91.6 fL (80-100); Monocytes Absolute Auto 700 /uL (0-900); Monocytes Percent Auto 11.8 % (3-14); Neutrophils Absolute Auto 3000 /uL (1500-7000); Neutrophils Percent Auto 49.5 % (50-75); Platelet Count 276 X10^3/uL (150-400); Red Blood Cell Count 5.31 X10^6/uL (4.5-5.9); Red Cell Distribution Width 13.8 % (11.6-14.8)
[2020-04-30 12:16] LABS: Percent Free Testosterone 1.83 % (1.50-4.20); Testosterone Free 16.48 ng/dL (5.00-21.00); Testosterone Total 900.3 ng/dL (264.0-916.0)
[2020-05-06 14:03] LABS: PSA, Total 1.5
[2020-05-06 14:04] LABS: PSA Free % 25.3
== END ==
PROVIDERS: PCP Physician Assistant; Referring Provider Physician Assistant; Visit Provider Physician Assistant
DX: E29.1 Testicular hypofunction (principal)
CPT/HCPCS: 36415; 84153; 84154; 84402; 84403; 85025

== ENCOUNTER → 2020-06-02 09:41 | Outpatient (CLI) | payer MEDICARE, BC, SELFPAY ==
[2020-06-02 11:05] LABS: Add Manual Diff / Slide Review NO; Basophils Absolute Auto 100 /uL (0-100); Basophils Percent Auto 1.2 % (0-2); Eosinophils Absolute Auto 400 /uL (0-450); Eosinophils Percent Auto 7.9 % (2-4); Hematocrit 47.8 % (41-53); Hemoglobin 16.1 g/dL (13.5-17.5); Lymphocytes Absolute Auto 1600 /uL (1100-4500); Lymphocytes Percent Auto 28.3 % (25-40); Mean Corpuscular HGB Conc 33.7 % (30-36); Mean Corpuscular Hemoglobin 29.8 PG (26-34); Mean Corpuscular Volume 88.4 fL (80-100); Monocytes Absolute Auto 700 /uL (0-900); Monocytes Percent Auto 11.9 % (3-14); Neutrophils Absolute Auto 2900 /uL (1500-7000); Neutrophils Percent Auto 50.7 % (50-75); Platelet Count 306 X10^3/uL (150-400); Red Blood Cell Count 5.41 X10^6/uL (4.5-5.9); Red Cell Distribution Width 14.3 % (11.6-14.8); White Blood Cell Count 5.7 X10^3/uL (4.5-11.0)
[2020-06-02 11:18] LABS: Alanine Aminotransferase 27 IU/L (<50); Albumin 3.7 g/dL (3.5-5.0); Albumin Globulin Ratio 1.4 (1.0-2.8); Alkaline Phosphatase 56 U/L (38-126); Aspartate Aminotransferase 30 IU/L (17-59); BUN Creatinine Ratio 27.5 (6-22); Bilirubin Total 0.8 mg/dL (0.2-1.3); Blood Urea Nitrogen 28 mg/dL (9-20); Calcium 9.2 mg/dL (8.4-10.2); Carbon Dioxide 29 mmol/L (22-32); Chloride 103 mmol/L (98-107); Estimated Glomerular Filt Rate > 60.0 mL/min (>60); Globulin 2.7 g/dL (1.7-4.1); Glucose 103 mg/dL (80-110); HEMOLYSIS < 15 (0-50); Potassium 4.9 mmol/L (3.4-5.1); Sodium 140 mmol/L (137-145); Total Protein 6.4 g/dL (6.3-8.2)
[2020-06-02 11:45] LABS: Clostridium Difficile Tox PCR Negative for C. diff
== END ==
PROVIDERS: PCP Physician Assistant; Referring Provider Physician Assistant; Visit Provider Physician Assistant
DX: R19.7 Diarrhea, unspecified (principal)
CPT/HCPCS: 36415; 80053; 85025; 87045; 87493; 87899

== ENCOUNTER → 2020-06-22 08:05 | Outpatient (CLI) | payer MEDICARE, BC, SELFPAY ==
[2020-07-03 10:27] LABS: Percent Free Testosterone 3.03 % (1.50-4.20); Testosterone Free 18.84 ng/dL (5.00-21.00); Testosterone Total 621.8 ng/dL (264.0-916.0)
== END ==
PROVIDERS: PCP Physician Assistant; Referring Provider Physician Assistant; Visit Provider Physician Assistant
DX: E29.1 Testicular hypofunction (principal)
CPT/HCPCS: 36415; 84402; 84403

== ENCOUNTER → 2020-08-11 07:40 | Outpatient (CLI) | payer MEDICARE, BC, SELFPAY ==
[2020-08-11 08:11] LABS: Add Manual Diff / Slide Review NO; Basophils Absolute Auto 0 /uL (0-100); Basophils Percent Auto 0.3 % (0-2); Eosinophils Absolute Auto 1000 /uL (0-450); Eosinophils Percent Auto 13.6 % (2-4); Hematocrit 48.8 % (41-53); Hemoglobin 16.1 g/dL (13.5-17.5); Lymphocytes Absolute Auto 1800 /uL (1100-4500); Mean Corpuscular HGB Conc 32.9 % (30-36); Monocytes Absolute Auto 700 /uL (0-900); Monocytes Percent Auto 9.9 % (3-14); Neutrophils Absolute Auto 3800 /uL (1500-7000); Neutrophils Percent Auto 51.2 % (50-75); Platelet Count 283 X10^3/uL (150-400); Red Blood Cell Count 5.54 X10^6/uL (4.5-5.9); Red Cell Distribution Width 17.3 % (11.6-14.8); White Blood Cell Count 7.4 X10^3/uL (4.5-11.0)
[2020-08-11 09:21] LABS: Blood Urea Nitrogen 30 mg/dL (9-20); Calcium 8.9 mg/dL (8.4-10.2); Carbon Dioxide 30 mmol/L (22-32); Chloride 104 mmol/L (98-107); Cholesterol 147 mg/dL (140-199); Estimated Glomerular Filt Rate > 60.0 mL/min (>60); Glucose 107 mg/dL (80-110); HDL Cholesterol 26 mg/dL (40-60); HEMOLYSIS 25 (0-50); LDL Cholesterol Calculated 84 mg/dL (<100); Potassium 4.4 mmol/L (3.4-5.1); Sodium 136 mmol/L (137-145); Triglycerides 183 mg/dL (35-150)
== END ==
PROVIDERS: PCP Physician Assistant; Referring Provider Physician Assistant; Visit Provider Physician Assistant
DX: R19.7 Diarrhea, unspecified (principal)
CPT/HCPCS: 36415; 80048; 80061; 85025

== ENCOUNTER → 2020-10-05 12:31 | Outpatient (CLI) | payer MEDICARE, BC, SELFPAY ==
--- NOTE | 2020-10-05 12:36 | DI.RAD.S_ITS ---
PROCEDURE: XR SHOULDER RT MIN 2V INDICATIONS: Rt Shoulder Pain TECHNIQUE: 3 views of the shoulder were acquired. COMPARISON: None. FINDINGS: Bones: No fracture. Moderate to severe AC joint degeneration. There is also glenohumeral joint degeneration, mild. Scattered degenerative subchondral sclerosis and spurring. Soft tissues: No suspicious soft tissue calcifications. IMPRESSION: Right shoulder joint degeneration as above. If the patient's pain or other symptoms persist, consider further evaluation with MRI Dictated by: Parish Huang M.D. on 10/05/2020 at 15:58 Approved by: Parish Huang M.D. on 10/05/2020 at 16:02
== END ==
PROVIDERS: PCP Physician Assistant; Referring Provider Physician Assistant; Visit Provider Physician Assistant
DX: M25.511 Pain in right shoulder (principal); M19.011 Primary osteoarthritis, right shoulder
CPT/HCPCS: 73030

== ENCOUNTER → 2020-10-30 07:06 | Outpatient (CLI) | payer MEDICARE, BC, SELFPAY ==
[2020-10-30 09:15] LABS: Prostate Specific Antigen 2.26 ng/mL (0.10-4.00)
== END ==
PROVIDERS: PCP Physician Assistant; Referring Provider Urology; Visit Provider Urology
DX: Z12.5 Encounter for screening for malignant neoplasm of prostate (principal)
CPT/HCPCS: 36415; 84153; G0103

== ENCOUNTER → 2020-11-25 11:32 | Outpatient (CLI) | payer MEDICARE, BC, SELFPAY ==
[2020-11-25 12:13] LABS: Add Manual Diff / Slide Review NO; Basophils Absolute Auto 0 /uL (0-100); Basophils Percent Auto 0.6 % (0-2); Eosinophils Absolute Auto 500 /uL (0-450); Hematocrit 49.5 % (41-53); Hemoglobin 16.3 g/dL (13.5-17.5); Lymphocytes Absolute Auto 1600 /uL (1100-4500); Lymphocytes Percent Auto 25.2 % (25-40); Mean Corpuscular HGB Conc 32.9 % (30-36); Mean Corpuscular Volume 91.1 fL (80-100); Monocytes Absolute Auto 600 /uL (0-900); Monocytes Percent Auto 9.3 % (3-14); Neutrophils Absolute Auto 3700 /uL (1500-7000); Neutrophils Percent Auto 56.9 % (50-75); Platelet Count 253 X10^3/uL (150-400); Red Blood Cell Count 5.43 X10^6/uL (4.5-5.9); Red Cell Distribution Width 14.5 % (11.6-14.8); White Blood Cell Count 6.5 X10^3/uL (4.5-11.0)
[2020-11-25 12:27] LABS: BUN Creatinine Ratio 25.5 (6-22); Blood Urea Nitrogen 26 mg/dL (9-20); Calcium 9.1 mg/dL (8.4-10.2); Carbon Dioxide 30 mmol/L (22-32); Chloride 100 mmol/L (98-107); Cholesterol 90 mg/dL (140-199); Estimated Glomerular Filt Rate > 60.0 mL/min (>60); Glucose 93 mg/dL (80-110); HDL Cholesterol 24 mg/dL (40-60); HEMOLYSIS 17 (0-50); LDL Cholesterol Calculated 46 mg/dL (<100); Potassium 4.4 mmol/L (3.4-5.1); Sodium 136 mmol/L (137-145); Triglycerides 102 mg/dL (35-150)
== END ==
PROVIDERS: PCP Physician Assistant; Referring Provider Internal Medicine Cardiovascular Disease; Visit Provider Internal Medicine Cardiovascular Disease
DX: E78.5 Hyperlipidemia, unspecified (principal); I10 Essential (primary) hypertension
CPT/HCPCS: 36415; 80048; 80061; 85025

== ENCOUNTER → 2020-12-07 13:29 | Outpatient (CLI) | payer MEDICARE, BC, SELFPAY ==
--- NOTE | 2020-12-07 | DI.ECHO.S_ITS ---
[facility]+ [facility] +---------+ : : [address] : : : : [id number] : : : : Phone: [phone]+ Echocardiogram Report + + :Name: LAURA SANCHEZ Study Date: 12/07/2020 Height: 72 in : :[facility] ReadingLocation: Weight: 210 lb : : Gender: Male BSA: 2.2 m2 : :: 1950 Age: 70 yrs BP: 124/82 mmHg: :Reason For Study: HTN : :Ordering Physician: Sergey : :Barbara Farr Performed By: Laurent Landaverde : :Referring: SERGEY FARR : + + Interpretation Summary 1) Normal left ventricular size, thickness, wall motion, and systolic function (EF 55-60%). 2) The right ventricle is normal in size and function. 3) No significant valvular abnormalities. 4) Compared to the Echo done 03/01/2019, no significant change. Procedure: A two-dimensional transthoracic echocardiogram with color flow and Doppler was performed. The study quality was technically good. Comparison is made with the echocardiogram of 03/01/2019. The patient was in sinus rhythm with heart rates between 65-69 bpm during the exam. Left Ventricle: The left ventricle is normal in size and wall thickness. Left ventricular systolic function is normal. The ejection fraction is estimated to be 55-60%. There are no focal wall motion abnormalities. Diastolic parameters suggest probable normal left ventricular diastolic function and normal filling pressures. Right Ventricle: The right ventricle is normal in size and function. Atria: Both atria are normal in size. There is no Doppler evidence for an interatrial shunt. Mitral Valve: There is mild mitral annular calcification. There is trace mitral regurgitation. Aortic Valve: There is mild aortic valve sclerosis. There is no aortic valve stenosis. No aortic regurgitation is present. Tricuspid Valve: The tricuspid valve is normal in structure and function. There is a trace or physiologic amount of tricuspid regurgitation. Pulmonary artery pressures cannot be estimated because of the lack of a measurable TR jet velocity but the IVC suggests a CVP of around 8 mmHg. Pulmonic Valve: The pulmonic valve is not well visualized. Great Vessels: The aortic root is normal size. The ascending aorta could not be visualized. The IVC is dilated (diameter is greater than 2.1 cm) yet it collapses greater than 50% with a sniff. This suggests a right atrial pressure of 8 mm Hg. Pericardium/ Pleura There is no pericardial effusion. There is an anterior echo-free space consistent with a fat pad. There is no pleural effusion. MMode/2D Measurements & Calculations LVIDd: 5.0 cm LVOT diam: 2.2 cm LVIDs: 3.4 cm Ao root diam: 3.7 cm FS: 33.2 % IVSd: 1.1 cm LVPWd: 0.95 cm LV christine. diameter/BSA (cm/m^2): 2.3 LV sys. diameter/BSA (cm/m^2): 1.5 LA A2 area: 16.2 cm2 RA long axis: 5.8 cm LA A4 area: 16.6 cm2 RA area: 18.2 cm2 LA length (vol): 4.9 cm RA vol: 49.0 ml LA vol: 47.0 ml RA : 22.5 ml/m2 LA vol index: 21.6 ml/m2 IVC diam: 2.2 cm TAPSE: 2.4 cm Doppler Measurements & Calculations Ao V2 max: 188.9 cm/sec LVOT Max Javier: 116.0 cm/sec Ao V2 mean: 132.8 cm/sec LV V1 max P.4 mmHg Ao max P.3 mmHg LV V1 VTI: 24.6 cm Ao mean P.9 mmHg SATISH(I,D): 2.5 cm2 Ao V2 VTI: 36.8 cm SATISH(V,D): 2.3 cm2 sev ratio: 0.67 SATISH indexed to BSA (cm^2/m^2): 1.1 MV E max javier: 77.7 cm/sec SV(LVOT): 91.7 ml MV A max javier: 102.9 cm/sec MV E/A: 0.76 Med Peak E' Javier: 8.1 cm/sec E/E' med: 9.6 Lat Peak E' Javier: 10.0 cm/sec E/E' lat: 7.8 E/e' average: 8.7 MV dec time: 0.27 sec Reading Physician:08:53 PM
== END ==
PROVIDERS: PCP Physician Assistant; Referring Provider Internal Medicine Cardiovascular Disease; Visit Provider Internal Medicine Cardiovascular Disease
DX: I35.8 Other nonrheumatic aortic valve disorders (principal); I77.89 Other specified disorders of arteries and arterioles; I10 Essential (primary) hypertension
CPT/HCPCS: 93306

== ENCOUNTER → 2021-01-25 07:10 | Outpatient (CLI) | payer MEDICARE, BC, SELFPAY ==
[2021-01-25 08:38] LABS: Add Manual Diff / Slide Review NO; Basophils Absolute Auto 100 /uL (0-100); Basophils Percent Auto 1.5 % (0-2); Eosinophils Absolute Auto 400 /uL (0-450); Eosinophils Percent Auto 7.6 % (2-4); Hematocrit 45.8 % (41-53); Hemoglobin 15.5 g/dL (13.5-17.5); Lymphocytes Absolute Auto 1600 /uL (1100-4500); Lymphocytes Percent Auto 31.5 % (25-40); Mean Corpuscular HGB Conc 33.9 % (30-36); Mean Corpuscular Hemoglobin 30.9 PG (26-34); Mean Corpuscular Volume 91.1 fL (80-100); Monocytes Absolute Auto 600 /uL (0-900); Monocytes Percent Auto 11.7 % (3-14); Neutrophils Absolute Auto 2500 /uL (1500-7000); Neutrophils Percent Auto 47.7 % (50-75); Platelet Count 228 X10^3/uL (150-400); Red Blood Cell Count 5.03 X10^6/uL (4.5-5.9); Red Cell Distribution Width 14.8 % (11.6-14.8); White Blood Cell Count 5.2 X10^3/uL (4.5-11.0)
[2021-01-30 01:37] LABS: Testosterone,Free 15.3 pg/mL (6.6-18.1)
[2021-02-02 14:56] LABS: Testosterone, Total 885.2
== END ==
PROVIDERS: PCP Physician Assistant; Referring Provider Physician Assistant; Visit Provider Physician Assistant
DX: E29.1 Testicular hypofunction (principal)
CPT/HCPCS: 36415; 84402; 84403; 85025

== ENCOUNTER → 2021-05-03 07:06 | Outpatient (CLI) | payer MEDICARE, BC, SELFPAY ==
[2021-05-03 07:55] LABS: Add Manual Diff / Slide Review NO; Basophils Absolute Auto 0 /uL (0-100); Basophils Percent Auto 0.2 % (0-2); Eosinophils Absolute Auto 600 /uL (0-450); Eosinophils Percent Auto 10.2 % (2-4); Hematocrit 47.2 % (41-53); Hemoglobin 15.7 g/dL (13.5-17.5); Lymphocytes Absolute Auto 2000 /uL (1100-4500); Lymphocytes Percent Auto 33.8 % (25-40); Mean Corpuscular HGB Conc 33.3 % (30-36); Monocytes Absolute Auto 600 /uL (0-900); Monocytes Percent Auto 10.1 % (3-14); Neutrophils Absolute Auto 2700 /uL (1500-7000); Neutrophils Percent Auto 45.7 % (50-75); Platelet Count 222 X10^3/uL (150-400); Red Blood Cell Count 5.08 X10^6/uL (4.5-5.9); Red Cell Distribution Width 14.6 % (11.6-14.8); White Blood Cell Count 5.9 X10^3/uL (4.5-11.0)
[2021-05-03 08:24] LABS: Alanine Aminotransferase 24 IU/L (<50); Albumin 3.2 g/dL (3.5-5.0); Albumin Globulin Ratio 1.3 (1.0-2.8); Alkaline Phosphatase 44 U/L (38-126); Aspartate Aminotransferase 30 IU/L (17-59); Blood Urea Nitrogen 25 mg/dL (9-20); Calcium 9.3 mg/dL (8.4-10.2); Carbon Dioxide 30 mmol/L (22-32); Chloride 104 mmol/L (98-107); Cholesterol 120 mg/dL (140-199); Estimated Glomerular Filt Rate > 60.0 mL/min (>60); Globulin 2.5 g/dL (1.7-4.1); Glucose 97 mg/dL (80-110); HDL Cholesterol 34 mg/dL (40-60); HEMOLYSIS < 15 (0-50); LDL Cholesterol Calculated 61 mg/dL (<100); Potassium 4.7 mmol/L (3.4-5.1); Sodium 138 mmol/L (137-145); Total Protein 5.7 g/dL (6.3-8.2); Triglycerides 125 mg/dL (35-150)
[2021-05-09 15:17] LABS: Percent Free Testosterone 3.68 % (1.50-4.20); Testosterone Free 21.01 ng/dL (5.00-21.00)
== END ==
PROVIDERS: PCP Physician Assistant; Referring Provider Physician Assistant; Visit Provider Physician Assistant
DX: E29.1 Testicular hypofunction (principal); I10 Essential (primary) hypertension; E78.2 Mixed hyperlipidemia
CPT/HCPCS: 36415; 80053; 80061; 84402; 84403; 85025

== ENCOUNTER → 2021-12-23 07:28 | Outpatient (CLI) | payer MEDICARE, BC, SELFPAY ==
[2021-12-23 09:57] LABS: Prostate Specific Antigen 1.95 ng/mL (0.10-4.00)
== END ==
PROVIDERS: PCP Physician Assistant; Referring Provider Urology; Visit Provider Urology
DX: Z85.51 Personal history of malignant neoplasm of bladder (principal); Z12.5 Encounter for screening for malignant neoplasm of prostate
CPT/HCPCS: 36415; 84153; G0103

== ENCOUNTER → 2022-10-27 10:41 | Outpatient (CLI) | payer MEDICARE, BC, SELFPAY ==
--- NOTE | 2022-10-27 | DI.US.S_ITS ---
PROCEDURE: US SCROTUM INDICATIONS: MASS OF RIGHT INGUINAL REGION TECHNIQUE: Real-time focused scanning was performed of the inguinal region, with image documentation. COMPARISON: None. FINDINGS: Ultrasound was performed in the area of interest in the right groin. No inguinal hernia is identified. No soft tissue mass or enlarged lymph node. IMPRESSION: 1. A cause for right groin pain or lump is not identified. No hernia, soft tissue mass or enlarged lymph node. If clinical symptoms persist, CT may be helpful. Dictated by: Vasu Edward M.D. on 10/27/2022 at 16:35 Approved by: Vasu Edward M.D. on 10/27/2022 at 16:37
== END ==
PROVIDERS: PCP Physician Assistant; Referring Provider Internal Medicine; Visit Provider Internal Medicine
DX: R19.09 Other intra-abdominal and pelvic swelling, mass and lump (principal)
CPT/HCPCS: 76870

== ENCOUNTER → 2022-11-05 12:27 | Outpatient (CLI) | payer MEDICARE, BC, SELFPAY ==
--- NOTE | 2022-11-05 12:30 | DI.CT.S_ITS ---
PROCEDURE: CT CHEST ABD PEL W CON INDICATIONS: Right inguinal mass TECHNIQUE: After the administration of oral and intravenous contrast, axial sections acquired from the supraclavicular neck to the pubic symphysis. Coronal and sagittal reformats were performed. For radiation dose reduction, the following was used: automated exposure control, adjustment of mA and/or kV according to patient size. COMPARISON: Outside Film, CT, CT ABDOMEN PELVIS WITH CONTRAST, 10/08/2013, 9:27. Outside Film, CT, CT ABDOMEN WITH CONTRAST, 01/01/2016, 8:37. [facility], CT, CT ABDOMEN PELVIS WITH CONTRAST, 12/01/2020, 14:52. FINDINGS: Image quality: Excellent. CHEST: Lower Neck: No enlarged lymph nodes. Thyroid: Within normal limits. Axillae: No enlarged lymph nodes. Chest Wall: Unremarkable. Lungs and Airways: There is a right upper lobe pulmonary nodule seen laterally, on series 5, image 200 measuring 6 mm, stable. Adjacent right middle lobe subpleural thickening is also seen, as on series 5, images 174-178, which is also stable. No new pulmonary nodule can be seen. No focal infiltrates are seen. Pleura: No pneumothorax or pleural effusions. Heart: Heart size is normal. No pericardial effusion. Moderate coronary artery calcification is seen. Thoracic Vessels: The aorta and pulmonary arteries demonstrate normal size. Mediastinum and Jeanie: No enlarged lymph nodes. Esophagus: No wall thickening. No hiatal hernia. ABDOMEN: Liver: Unremarkable. Gallbladder: Removed. Biliary ducts: Unremarkable. Pancreas: Unremarkable. Spleen: The spleen demonstrates normal size. At least 5 enhancing masses can be seen within the spleen, which are similar to prior studies, including 2013. Adrenal Glands: Unremarkable. Kidneys and Ureters: Scarring can be seen along the posterior aspect of the left kidney, as before. There is an exophytic water density cyst along the anterior right kidney, 2.3 cm. The kidneys enhance symmetrically and there is no hydronephrosis. Stomach and Bowel: Extensive colonic diverticulosis is seen, which is worst distally. No findings of active diverticulitis are seen. The colon is otherwise unremarkable No significant small bowel abnormality is seen. A normal appendix is partially seen. The stomach is relatively decompressed, which limits its evaluation. Peritoneum: No abnormal intraperitoneal fluid. No free air. Ventral Wall: A mild periumbilical hernia is seen, containing fat. Abdominal Nodes: No retroperitoneal or mesenteric adenopathy by size criteria. Vessels: Aorta and inferior vena cava are normal in size. PELVIS: Pelvic Organs: Unremarkable. Bladder: Unremarkable. Pelvic Nodes: A mildly enlarged right inguinal lymph node is seen measuring 12 x 15 mm, as on series 2, image 139. Miscellaneous: There is a moderately sized fat containing right inguinal hernia seen. No significant change compared to 2014. Bones: Age-appropriate bony degenerative changes are seen. IMPRESSION: There is a moderately sized fat containing right inguinal hernia. This is not significantly changed compared to 2014. There is a mildly enlarged right inguinal lymph node seen. Stable right middle lobe 6 mm pulmonary nodule and adjacent subpleural thickening. Stable enhancing splenic masses, which are not significantly changed compared to 2014. Additional findings: Moderate coronary artery calcification Cholecystectomy Simple appearing right renal cyst Stable left renal scarring Fat containing periumbilical hernia Extensive distal colonic diverticulosis, without findings of active diverticulitis Dictated by: Wade Little M.D. on 11/05/2022 at 22:12 Approved by: Wade Little M.D. on 11/05/2022 at 22:23
== END ==
PROVIDERS: PCP Physician Assistant; Referring Provider Physician Assistant; Visit Provider Physician Assistant
DX: K40.90 Unilateral inguinal hernia, without obstruction or gangrene, not specified as recurrent (principal); R59.0 Localized enlarged lymph nodes; R16.1 Splenomegaly, not elsewhere classified; R19.09 Other intra-abdominal and pelvic swelling, mass and lump; R91.1 Solitary pulmonary nodule; I25.10 Atherosclerotic heart disease of native coronary artery without angina pectoris
CPT/HCPCS: 71260; 74177; Q9967

== ENCOUNTER 2022-12-27 08:26 | Day surgery (SDC) | payer MEDICARE, BC, SELFPAY ==
[2022-12-27] VITALS (8 sets, daily range): BP systolic 108–123; BP diastolic 66–79; PULSE 68–80; RESP 12–21; TEMP 35.8–36.3; O2SAT 92–98; BMI 27.8
--- NOTE | 2022-12-27 | PATH_ITS ---
[facility] Accession Number: [id number] No. of containers..01 Tissue . 01 Material submitted: . umbilicus - RIGHT CORD STRUCTURES . 01 Clinical history: . UMBILICAL HERNIA W/O OBSTRUCTION OR GANGRENE UNILATERAL INGUINAL HERNIA, W/O OBSTRUCTION . 01 Diagnosis: Right Cord Structures: Portion of vas deferens (calcifying), multiple blood vessels, and adipose tissue consistent with spermatic cord contents. Negative for neoplasia. MRV 12/30/2022 1638 Local . 01 Electronically signed: . Karen Hernadez MD, Pathologist NPI- [id number] . 01 Gross description: . The specimen is received in formalin labeled with the patient's name, , and right cord structures, and consists of a soft tissue fragment with yellow lobulated soft tissue and a varela cylindrical soft tissue fragment, all measuring 7.1 x 2.1 x 1.5 cm. The external surface is inked blue. Sectioning reveals yellow soft cut surface with patent pinpoint lumens. Electrical And Instrument Mechanic sections are submitted in cassettes A1-A2. ([id number]) /MRV 12/28/2022 1818 Local . 01 Pathologist provided ICD-10: K40.91 . 01 CPT . 809785 Performed at: 01 [facility] [address] [place] [address] [address], [place], [place] [id number] MD Sean Irby MD Phone: [phone]
[2022-12-27] MEDS: LACTATED RINGERS 1,000 ML 42 ML IV ×2 (09:02→10:18)
--- NOTE | 2022-12-27 09:21 | PM.PREOP ---
Pre-operative Note COVID-19 COVID-19 status: Not tested Interval Note History & Physical reviewed/Exam performed by Physician: Yes Changes to H&P: No ASA Class (for procedural sedation): II
[2022-12-27] MEDS: CEFAZOLIN 2 GM/100 ML PREMIX 100 ML IV (09:37)
--- NOTE | 2022-12-27 10:06 | SUR.OPER ---
Supine on padded OR bed, head on pillow, arms secured on padded arm boards at <90 degrees abduction, legs uncrossed, safety belt at thigh, tape over blanket over lower legs.
[2022-12-27] MEDS: BUPIVACAINE 0.5% (PF) 30 ML, EPINEPHrine 0.15 MG INJ (10:25)
--- NOTE | 2022-12-27 11:30 | PM.OP.1 ---
Operative Date/Time/Diagnoses Date of procedure: 12/27/22 Time of procedure: 11:31 Pre-op diagnosis: Recurrent right inguinal and recurrent umbilical hernia Post-op diagnosis: same Procedure & Clinicians Procedure: 1. Open recurrent right inguinal hernia repair 2. Open recurrent umbilical hernia repair with mesh Same procedure as scheduled: Yes Surgeon: Antony Stearns Operative Notes Procedure in detail: Preoperative antibiotic was administered. The patient was brought to the operating room and placed on the table in supine position general anesthesia was induced. The right groin and abdomen was prepped and draped in the normal fashion and a time-out was performed. Roughly 10 mL of local anesthetic were injected into the skin and subcutaneous adipose tissue over the right groin. A 6 cm incision was made over the right inguinal canal. Dissection was carried down through the subcutaneous adipose tissue. We exposed the external oblique aponeurosis in the direction of the fibers. Additional local was injected deep to the aponeurosis. A 15 blade scalpel was used to erinn the external oblique aponeurosis. Metzenbaum scissors were used to carefully open the aponeurosis in the direction of the fibers. Mesh was adherent to the underside of the aponeurosis was divided along with the open aponeurosis. We did encounter cord structures including the vas deferens which felt calcified. We encircled the cord with a Falguni drain for retraction. We divided the cord structures using cautery for the vas and clamp and tie with 3-0 Vicryl for the vessels. Local was injected into the vas. The proximal cord structures were allowed to fall back into the abdomen. The hernia defect appeared to be a small opening at the internal ring and was closed with 2 interrupted 0 Ethibond sutures. We injected some more local into the fatty tissue in the inguinal canal and cord. We placed a few 3-0 Prolene sutures to reapproximate the mesh and closed the external oblique fascia with a running 3-0 Vicryl suture. Skin was closed with interrupted 3-0 Vicryl dermal sutures and a running 4 Monocryl subcuticular stitch. We then turned to the umbilical defect. We made a 4 cm midline incision. We dissected the hernia from the surrounding tissue. The old Ethibond sutures were visible in the recurrence appeared to be emanating from the right side of the old repair. We freed the hernia and allowed to drop back into the abdomen. We then injected some additional local around the fascial edge and closed the fascial defect with for interrupted 0 Ethibond sutures. We then cleared the subcutaneous adipose tissue off the anterior sheath circumferentially over a radius of greater than 1 cm. A piece of polypropylene mesh was fashioned to fit over the repair and fixed to the fascia with Tisseel. We tacked the umbilical skin down to the inferior portion of the mesh and closed the wound in layers using multiple interrupted 3-0 Vicryl sutures and a running 4-0 Monocryl subcuticular closure. Steri-Strips and pressure dressing were applied. Dressings were applied to the groin incision as well. The patient was awakened and brought to recovery room. EBL: 10 mL Post-operative Condition: stable Disposition: PACU
== END 2022-12-27 12:34 | disposition home or self-care (01) ==
PROVIDERS: PCP Family Medicine; Referring Provider Surgery; Visit Provider Surgery
PROC: (CPT 49615; principal; 2022-12-27 09:45)
PROC: (CPT 49615; 2022-12-27 09:45)
DX: K40.91 Unilateral inguinal hernia, without obstruction or gangrene, recurrent (principal); K42.9 Umbilical hernia without obstruction or gangrene
CPT/HCPCS: 49615; 49520; J0171; J0690; J1100; J2405; J2704; J3010

== ENCOUNTER 2023-03-04 17:17 | Emergency (ER) | payer MEDICARE, BC, SELFPAY ==
[2023-03-04 17:20] VITALS: BP 128/73; PULSE 79; RESP 18; TEMP 37.1; O2SAT 98; BMI 27.8
--- NOTE | 2023-03-04 17:26 | DI.RAD.S_ITS ---
PROCEDURE: XR TIBIA FUBULA RT 2V, 03/04/2023, 17:28 XR ANKLE RT MIN 3V, 03/04/2023, 17:28 INDICATIONS: fall/pain TECHNIQUE: Two views of the right tibia and fibula and three views of the right ankle. COMPARISON: [facility], , TIB/FIB 2V LEFT, 07/20/2017, 16:12. FINDINGS: Bones: No fractures or dislocations. No suspicious bony lesions. Soft tissues: No suspicious soft tissue calcifications or masses. IMPRESSION: No acute abnormality of the right tibia and fibula and right ankle. Dictated by: Ravi Robert M.D. on 03/04/2023 at 17:25 Approved by: Ravi Robert M.D. on 03/04/2023 at 17:26
--- NOTE | 2023-03-04 17:26 | DI.RAD.S_ITS ---
PROCEDURE: XR TIBIA FUBULA RT 2V, 03/04/2023, 17:28 XR ANKLE RT MIN 3V, 03/04/2023, 17:28 INDICATIONS: fall/pain TECHNIQUE: Two views of the right tibia and fibula and three views of the right ankle. COMPARISON: [facility], , TIB/FIB 2V LEFT, 07/20/2017, 16:12. FINDINGS: Bones: No fractures or dislocations. No suspicious bony lesions. Soft tissues: No suspicious soft tissue calcifications or masses. IMPRESSION: No acute abnormality of the right tibia and fibula and right ankle. Dictated by: Ravi Robert M.D. on 03/04/2023 at 17:25 Approved by: Ravi Robert M.D. on 03/04/2023 at 17:26
[2023-03-04 21:13] VITALS: BP 129/72; PULSE 70; RESP 20; O2SAT 99
--- NOTE | 2023-03-04 21:21 | ED_ITS ---
HPI - Extremity Injury (Lower) General Chief Complaint: Extremity Injury, Lower Stated Complaint: GLF twisted ankle Time Seen by Provider: 03/04/23 21:12 Source: patient Mode of arrival: Wheelchair History of Present Illness HPI Narrative: Patient is a 72-year-old male history of hypertension presenting today with right ankle injury. He says he was working in the yd when he tripped over a root. No other injury denies head neck pain. Having pain right ankle and over the Achilles. Knee and hip are stable. Not able to bear weight at this time. Related Data Home Medications Medication Instructions Recorded Confirmed lisinopril 10 mg tablet 10 mg PO QDAY ##0 04/22/17 01/09/23 aspirin 81 mg tablet,delayed 81 mg PO DAILY 10/24/19 01/09/23 release (Avel Low Dose Aspirin) azelastine 137 mcg (0.1 %) nasal 1 spray intranasal BID 10/24/19 01/09/23 spray aerosol ibuprofen 800 mg tablet 800 mg PO Q8H 10/24/19 01/09/23 omeprazole magnesium 20 mg 20 mg PO DAILY 10/24/19 01/09/23 tablet,delayed release (Prilosec OTC) metoprolol succinate 25 mg 1 tab PO DAILY 11/23/22 01/09/23 tablet,extended release 24 hr testosterone cypionate 200 mg/mL 200 mg IM QWEEK 11/23/22 01/09/23 intramuscular oil Previous Rx's Medication Instructions Recorded hydrocodone 5 mg-acetaminophen 325 1 tab PO Q8H PRN pain #10 tabs 12/27/22 mg tablet hydrocodone 5 mg-acetaminophen 325 1 tab PO Q6H PRN pain #10 tabs 03/04/23 mg tablet Allergies Allergy/AdvReac Type Severity Reaction Status Date / Time latex [LATEX] Allergy Unknown Rash Verified 01/09/23 09:56 meperidine [MEPERIDINE] Allergy Unknown SKIN RASH Verified 01/09/23 09:56 Review of Systems Review of Systems ROS Unobtainable: All systems reviewed & are unremarkable except as noted in HPI and below Patient History Medical History Abnormal chest xray (~2009) Allergies (~1954) Arthritis Basal cell carcinoma Benign essential HTN Bladder cancer Bone spur Bowel obstruction Cataract of left eye Chicken pox (~1954) Colon polyps (~2002) Constipation Cough Frozen shoulder Gallbladder disease GERD (gastroesophageal reflux disease) History of epididymitis History of pneumonia Hyperlipemia Inguinal hernia Low testosterone (~1995) Measles (~1955) Melanoma (~2006) Melanoma in situ (~2006) MRSA (methicillin resistant Staphylococcus aureus) (~1955) Osteoarthritis (~2009) Shoulder pain (~2019) Urinary urgency Surgical History Anesthesia Cataract extraction status of right eye H/O varicose vein ligation History of ERCP History of orchiectomy, bilateral History of umbilical hernia repair History of YAG laser capsulotomy of lens of left eye Hx of tonsillectomy Hx of transurethral destruction of bladder lesion Family History Father Diabetes mellitus History of heart disease Brother Crohn's disease Social History marital status: household members: spouse lives independently: Yes occupational status: previously employed Smoking Status: Former smoker alcohol intake: current substance use type: does not use Smoking Status: Former smoker alcohol intake frequency: a few times a week Substance Use Type: does not use Exam Initial Vital Signs Initial Vital Signs: Vital Signs Temperature 98.7 F 03/04/23 17:20 Pulse Rate 79 03/04/23 17:20 Respiratory Rate 18 03/04/23 17:20 Blood Pressure 128/73 03/04/23 17:20 Pulse Oximetry 98 03/04/23 17:20 Oxygen Delivery Method Room Air 03/04/23 17:20 GENERAL: Alert pleasant well-appearing 72-year-old male CARDIOVASCULAR: peripheral pulses in tact, cap refill <2 sec RESPIRATORY: No respiratory distress, speaks in full sentences without difficulty EXTREMITIES: Normal range of motion, no clubbing or edema. Neurovascularly intact Right ankle mild swelling but is stable Achilles is not intact, negative Cornell test distal pedal pulse intact NEUROLOGICAL: Cranial nerves II through XII grossly intact. Normal gait and speech. SKIN: Warm, dry, no petechiae, no rashes or lesions. Course Orders Ordered: Discontinued Medications Hydrocodone Bitart/Acetaminophen (Hydrocodone/Acet 5/325 Prepack) 1 bottle MIS SEEINSTR ONE Stop: 03/04/23 21:34 Last Admin: 03/04/23 22:07 Dose: 1 bottle Documented By: OW Vital Signs Vital signs: Vital Signs - 8 hr 03/04/23 21:13 03/04/23 22:10 Pulse Rate 70 76 Respiratory Rate 20 20 Blood Pressure 129/72 130/75 Pulse Oximetry 99 100 Oxygen Delivery Method Room Air Room Air MDM - Extremity Injury (Lower) Imaging Data Extremity x-ray #1: Radiologist's Impression: PROCEDURE:? XR TIBIA FUBULA RT 2V, 03/04/2023, 17:28 XR ANKLE RT MIN 3V, 03/04/2023, 17:28 ? INDICATIONS:? fall/pain ? TECHNIQUE:? Two views of the right tibia and fibula and three views of the right ankle. ? COMPARISON:? [facility], TIB/FIB 2V LEFT, 07/20/2017, 16:12. ? FINDINGS:? ? Bones:? No fractures or dislocations.? No suspicious bony lesions.? ? Soft tissues:? No suspicious soft tissue calcifications or masses.? ? IMPRESSION:? No acute abnormality of the right tibia and fibula and right ankle. ? ? Dictated by: Ravi Robert M.D. on 03/04/2023 at 17:25 ? ? Extremity x-ray #2: Radiologist's Impression: PROCEDURE:? XR TIBIA FUBULA RT 2V, 03/04/2023, 17:28 XR ANKLE RT MIN 3V, 03/04/2023, 17:28 ? INDICATIONS:? fall/pain ? TECHNIQUE:? Two views of the right tibia and fibula and three views of the right ankle. ? COMPARISON:? [facility], TIB/FIB 2V LEFT, 07/20/2017, 16:12. ? FINDINGS:? ? Bones:? No fractures or dislocations.? No suspicious bony lesions.? ? Soft tissues:? No suspicious soft tissue calcifications or masses.? ? IMPRESSION:? No acute abnormality of the right tibia and fibula and right ankle. ? ? Dictated by: Ravi Robert M.D. on 03/04/2023 at 17:25 [facility] Narrative Medical decision making narrative: Patient 72-year-old male with right ankle sprain. However he also likely has Achilles tendon rupture. It does not feel intact he is a negative Cornell's squeeze test. He is placed in a walking boot with elevated heel and given crutches pain medications instructed to call Orthopedics on Monday. Discharge Plan Departure Patient Disposition: Home Clinical Impression: Right ankle sprain, Achilles tendon rupture Instructions: Ankle Sprain, DI for Achilles Tendon Rupture Activity Restrictions/Additional Instructions: *You have been diagnosed with Achilles tendon rupture and right ankle sprain *What to do: Elevate and ice. May toe-touch. Keep boot on at all times. Please call orthopedics 1st thing on Monday *Continue to take medications as directed Ibuprofen 600 mg every 6 hours if needed for [id number] pain Wesley 1 tablet every 6 hours if needed for severe pain--> [facility] *Follow up with your primary care provider in 2-3 days or call [phone] Call Orthopedics Monday to schedule follow-up appointment you will likely need surgery in 1-2 weeks *Return to ER if you should have increasing pain swelling weakness or any new, worsening or concerning symptoms CONTROLLED SUBSTANCE DISCHARGE (Narcotoic/benzodiazepine/Flexeril/Phenergan) 1. You have been prescribed narcotic medications, it does have acetaminophen/Tylenol/paracetamol in it, DO NOT TAKE MORE THAN 4,00mg in 24 hours of Tylenol. TRAMADOL DOES NOT CONTAIN TYLENOL 2. Please understand that we cannot provide further refills of narcotics, benzodiazepines or controlled substances through the ED and her pain management will need to be through your provider. 3. While on these medications you cannot drive or operate heavy machinery. 4. You cannot sign legal documents or perform any duties such as this. 5. As long as you're taking opiate pain medications he should also be taking a stool softener such as Colace, Dulcolax, MiraLAX or prune juice, to help avoid constipation. Prescriptions: New hydrocodone-acetaminophen 5-325 mg tablet 1 tab PO Q6H PRN (Reason: pain) Qty: 10 0RF No Action lisinopril 10 MG tablet 10 mg PO QDAY Qty: 0 metoprolol succinate 25 mg tablet extended release 24 hr 1 tab PO DAILY testosterone cypionate 200 mg/mL oil 200 mg IM QWEEK Rx Instructions: 0.3mls IM q week. aspirin [Avel Low Dose Aspirin] 81 mg Tablet,Delayed Release (Dr/Ec) 81 mg PO DAILY omeprazole magnesium [Prilosec OTC] 20 mg Tablet,Delayed Release (Dr/Ec) 20 mg PO DAILY ibuprofen 800 mg Tablet 800 mg PO Q8H azelastine 137 mcg (0.1 %) Aerosol,[place] 1 spray INTRANASAL BID hydrocodone-acetaminophen 5-325 mg tablet 1 tab PO Q8H PRN (Reason: pain) Qty: 10 0RF Referrals: Alexis Bower DO [Primary Care Provider] - Stand Alone Forms: Patient Portal/API
[2023-03-04] MEDS: HYDROCODONE/ACET 5/325 PREPACK 1 BOTTLE MISC (22:07)
[2023-03-04 22:10] VITALS: BP 130/75; PULSE 76; RESP 20; O2SAT 100
== END 2023-03-04 22:15 | disposition home or self-care (01) ==
PROVIDERS: Emergency Provider Emergency Medicine; PCP Family Medicine
DX: S93.401A Sprain of unspecified ligament of right ankle, initial encounter (principal); W01.0XXA Fall on same level from slipping, tripping and stumbling without subsequent striking against object, initial encounter; S86.011A Strain of right Achilles tendon, initial encounter
CPT/HCPCS: 73590; 73610; 99282; 99283

== ENCOUNTER 2023-03-16 14:22 | Day surgery (SDC) | payer MEDICARE, BC, SELFPAY ==
[2023-03-16 07:49] VITALS: BMI 27.8
[2023-03-16 14:51] VITALS: BMI 27.8
--- NOTE | 2023-03-16 15:00 | PM.PREOP ---
Pre-operative Note Interval Note History & Physical reviewed/Exam performed by Physician: Yes Changes to H&P: No
--- NOTE | 2023-03-16 15:06 | P.OP_ITS ---
Operative Date/Time/Diagnoses Date of procedure: 03/16/23 Time of procedure: 15:06 Pre-op diagnosis: Achilles tendon rupture right Post-op diagnosis: same Procedure & Clinicians Procedure: Repair Achilles tendon, right CPT code 75526 Same procedure as scheduled: Yes Indications: The patient is a 72-year-old man with a full-thickness right Achilles tendon rupture sustained 10 days ago. He has an established gap. He does not have any hard contraindications to repair. We discussed operative and non operative options. He is indicated for operative repair to reduce the risk of re-rupture, persistent weakness and dysfunction. The risks and benefits of the procedure have been discussed with the patient and given the opportunity to ask questions. The risks of surgery include but are not limited to infection, weakness, wound healing problems, re-rupture, persistence of pain, damage to nerves and blood vessels, DVT, PE, cardiopulmonary complications and . The patient expressed a thorough understanding of the risks and benefits of surgery and has elected to proceed. Consent was signed in the office. Surgeon: Merary Mejia Click Yes if Unassisted: Yes Anesthesia Type: General and Local Operative Notes Findings: Full-thickness Achilles tendon rupture right Closure Type: primary Specimen(s): none sent Prosthetic devices, grafts, tissues, transplants, or devices: Arthrex midsubstance SpeedBridge, pars technique with heel anchors Estimated Blood Loss (mL): 5 Blood products transfused: none Tourniquet time (min): 46 Procedure in detail: The patient was seen in the preoperative area and the site of surgery marked informed consent confirmed. The patient was then brought back to the operating room by the anesthesia team. The patient was positioned supine on operative table. General anesthesia was administered. Patient was then flipped to the prone position. All bony prominences well padded. A well-padded thigh tourniquet was placed. The lower extremity was prepped and draped in standard sterile fashion. A formal time-out procedure was performed confirming the patient's side and site of surgery administration of appropriate preoperative antibiotics. All were in agreement. Attention was turned to the posterior leg. The Esmarch tourniquet was used for exsanguination and the tourniquet raised on the thigh to 250 mmHg. A small incision just medial to the midline on the Achilles tendon was drawn out. This was taken down through the skin subcutaneous tissue. The paratenon was then opened over the Achilles tendon midline the skin incision to keep these out of direct alignment with each other. Minimal flaps were raised. The Achilles tendon rupture was exposed this is a highly involved shedding and mop ends from the midsubstance and extended distally near the tendon insertion. Plantaris tendon was exposed and incorporated in the repair. Deep fasciotomy was completed to allow blood flow and reduce tension off the repair. The hematoma and rupture site were irrigated and debrided. The 2 tendons ends were mobilized and the pars jig from the Arthrex system for minimally invasive Achilles repair was inserted inside the paratenon and slid proximally along the Achilles tendon proximal stump. Passing needles were used to pass sutures 1 through 5. They were in order again and the 2. Suture was then passed around the passing sutures twice and then through the loop on each side of the tendon and then these were pulled through creating a 1. Nonlocked stitch a 2. Locking stitch and 3. Nonlocked stitch. The same procedure was then performed on the distal stump this created 2 nonlocked and 1 locking stitch on either side of the rupture. These then pulled through out of the wound. These pulled out of the distal stump and due to its size, decision was made to do a pars some midsubstance SpeedBridge distal fixation. For 2 small incisions were made medial and lateral aspects of the heel posteriorly and soft tissue was dissected to the level of the bone. The drill for the 2 SwiveLock anchors was drilled and then these were tapped. Two suture anchors were prepared to be placed into the heel. and using the SutureLasso the proximal Achilles tendon step sutures were passed through the distal aspect of the wound underneath the skin and then out of the heel incisions. These were then fed through the SwiveLock and placed into the heel and tightened with the foot was then brought into approximately 20? plantar flexion The repair site was oversewn with 0 Vicryl suture. The Cornell plantar flexion test was then restored with visible plantar flexion with calf squeeze. The wound was then irrigated. The paratenon was closed with 2-0 Vicryl. The tourniquet was released. Hemostasis was achieved. The subcutaneous suture was done with 2-0 Vicryl 4-0 Monocryl and 3-0 nylon suture placed in the skin. A well-padded splint was placed in plantar flexion. The drapes removed the patient was woken from anesthesia and taken to recovery room in good condition. There no immediate complications from this procedure. All counts were correct. Complications: none Post-operative Condition: stable Disposition: PACU Plan for aftercare: Nonweightbearing x2 weeks and plantar flexion splint. Then will come back to clinic and be placed in a boot with heel lifts and start progressive weight- bearing in the boot with heel lifts. And range of motion below neutral. After 6 weeks we will start weaning the lifts in the boot. Between 8 and 10 weeks we will start weaning out of the boot into a shoe.
[2023-03-16 15:13] VITALS: BP 139/86; PULSE 66; RESP 14; TEMP 36.5; O2SAT 98
[2023-03-16] MEDS: CEFAZOLIN 2 GM/100 ML PREMIX 100 ML IV (15:22)
--- NOTE | 2023-03-16 15:46 | SUR.OPER ---
Prone on padded OR bed, head in foam head support, Chris frame, gel pad under knees, pillow under lower legs, toes free of pressure, arms secured on padded arm boards at <90 degrees abduction. Safety belt at thigh.
[2023-03-16] MEDS: BUPIVACAINE 0.5% W/ EPI (PF) 30 ML VIAL 20 ML INJ (15:56)
[2023-03-16 16:57] VITALS: BP 114/67; PULSE 55; RESP 13; TEMP 36.4; O2SAT 90
[2023-03-16 17:03] VITALS: BP 111/63; PULSE 58; RESP 12; O2SAT 97
[2023-03-16 17:07] VITALS: BP 114/64; PULSE 58; RESP 10; O2SAT 98
[2023-03-16] MEDS: OXYCODONE IR 5 MG TABLET PO (17:15)
[2023-03-16 17:17] VITALS: BP 115/61; PULSE 57; RESP 12; O2SAT 95
== END 2023-03-16 17:56 | disposition home or self-care (01) ==
PROVIDERS: PCP Family Medicine; Referring Provider Orthopaedic Surgery Foot and Ankle Surgery; Visit Provider Orthopaedic Surgery Foot and Ankle Surgery
PROC: (CPT 27650; principal; 2023-03-16 16:00)
DX: S86.011A Strain of right Achilles tendon, initial encounter (principal); I10 Essential (primary) hypertension
CPT/HCPCS: 27650; J0690; J1170; J2405; J2704; J3010

== ENCOUNTER → 2023-04-28 07:37 | Outpatient (CLI) | payer MEDICARE, BC, SELFPAY ==
[2023-04-28 08:59] LABS: Add Manual Diff / Slide Review NO; Basophils Absolute Auto 100 /uL (0-100); Basophils Percent Auto 2.9 % (0-2); Eosinophils Absolute Auto 500 /uL (0-450); Eosinophils Percent Auto 9.4 % (2-4); Hematocrit 42.3 % (41-53); Hemoglobin 14.5 g/dL (13.5-17.5); Lymphocytes Absolute Auto 1400 /uL (1100-4500); Lymphocytes Percent Auto 27.1 % (25-40); Mean Corpuscular HGB Conc 34.3 % (30-36); Mean Corpuscular Volume 90.5 fL (80-100); Monocytes Absolute Auto 600 /uL (0-900); Monocytes Percent Auto 11.1 % (3-14); Neutrophils Absolute Auto 2500 /uL (1500-7000); Neutrophils Percent Auto 49.5 % (50-75); Platelet Count 320 X10^3/uL (150-400); Red Blood Cell Count 4.67 X10^6/uL (4.5-5.9); Red Cell Distribution Width 12.9 % (11.6-14.8)
[2023-04-28 09:18] LABS: Alanine Aminotransferase 17 IU/L (<50); Albumin 3.4 g/dL (3.5-5.0); Albumin Globulin Ratio 1.4 (1.0-2.8); Alkaline Phosphatase 39 U/L (38-126); Aspartate Aminotransferase 21 IU/L (17-59); BUN Creatinine Ratio 25.9 (6-22); Bilirubin Total 0.7 mg/dL (0.2-1.3); Blood Urea Nitrogen 21 mg/dL (9-20); Calcium 9.3 mg/dL (8.4-10.2); Carbon Dioxide 28 mmol/L (22-32); Chloride 100 mmol/L (98-107); Estimated Glomerular Filt Rate > 60 mL/min (>60); Globulin 2.5 g/dL (1.7-4.1); Glucose 100 mg/dL (80-110); HEMOLYSIS < 15 (0-50); Potassium 4.5 mmol/L (3.4-5.1); Sodium 135 mmol/L (137-145); Total Protein 5.9 g/dL (6.3-8.2)
[2023-04-28 09:46] LABS: Prostate Specific Antigen 2.42 ng/mL (0.10-4.00)
[2023-04-28 09:48] LABS: Testosterone 924 ng/dL (71.8-623)
== END ==
PROVIDERS: PCP Family Medicine; Referring Provider Urology; Visit Provider Urology
DX: C67.9 Malignant neoplasm of bladder, unspecified (principal); Z87.438 Personal history of other diseases of male genital organs; R79.89 Other specified abnormal findings of blood chemistry; Z85.51 Personal history of malignant neoplasm of bladder; Z86.03 Personal history of neoplasm of uncertain behavior; Z92.89 Personal history of other medical treatment; Z98.890 Other specified postprocedural states
CPT/HCPCS: 36415; 80053; 84153; 84403; 85025

== ENCOUNTER → 2023-05-01 07:45 | Outpatient (CLI) | payer MEDICARE, BC, SELFPAY ==
[2023-05-01 09:38] LABS: Testosterone 728 ng/dL (71.8-623)
== END ==
PROVIDERS: PCP Family Medicine; Referring Provider Urology; Visit Provider Urology
DX: R79.89 Other specified abnormal findings of blood chemistry (principal)
CPT/HCPCS: 36415; 84403

== ENCOUNTER → 2023-06-12 07:16 | Outpatient (CLI) | payer MEDICARE, BC, SELFPAY ==
[2023-06-12 09:15] LABS: Testosterone 629 ng/dL (71.8-623)
== END ==
PROVIDERS: PCP Family Medicine; Referring Provider Urology; Visit Provider Urology
DX: R79.89 Other specified abnormal findings of blood chemistry (principal)
CPT/HCPCS: 36415; 84403

== ENCOUNTER → 2023-06-19 07:27 | Outpatient (CLI) | payer MEDICARE, BC, SELFPAY ==
[2023-06-19 08:58] LABS: Testosterone 224 ng/dL (71.8-623)
== END ==
PROVIDERS: PCP Family Medicine; Referring Provider Urology; Visit Provider Urology
DX: R79.89 Other specified abnormal findings of blood chemistry (principal)
CPT/HCPCS: 36415; 84403

== ENCOUNTER → 2023-07-19 13:44 | Outpatient (CLI) | payer MEDICARE, BC, SELFPAY ==
[2023-07-19 14:21] LABS: Add Manual Diff / Slide Review NO; Basophils Absolute Auto 0 /uL (0-100); Basophils Percent Auto 0.8 % (0-2); Eosinophils Absolute Auto 200 /uL (0-450); Hematocrit 40.2 % (41-53); Hemoglobin 13.5 g/dL (13.5-17.5); Lymphocytes Absolute Auto 1400 /uL (1100-4500); Mean Corpuscular HGB Conc 33.7 % (30-36); Mean Corpuscular Hemoglobin 29.1 PG (26-34); Mean Corpuscular Volume 86.6 fL (80-100); Monocytes Absolute Auto 600 /uL (0-900); Monocytes Percent Auto 11.3 % (3-14); Neutrophils Absolute Auto 3200 /uL (1500-7000); Neutrophils Percent Auto 58.9 % (50-75); Platelet Count 357 X10^3/uL (150-400); Red Blood Cell Count 4.64 X10^6/uL (4.5-5.9); Red Cell Distribution Width 14.2 % (11.6-14.8); White Blood Cell Count 5.4 X10^3/uL (4.5-11.0)
[2023-07-19 14:34] LABS: Alanine Aminotransferase 18 IU/L (<50); Albumin 3.8 g/dL (3.5-5.0); Albumin Globulin Ratio 1.4 (1.0-2.8); Alkaline Phosphatase 37 U/L (38-126); Aspartate Aminotransferase 25 IU/L (17-59); BUN Creatinine Ratio 30.1 (6-22); Bilirubin Total 0.7 mg/dL (0.2-1.3); Blood Urea Nitrogen 25 mg/dL (9-20); Calcium 8.9 mg/dL (8.4-10.2); Carbon Dioxide 29 mmol/L (22-32); Chloride 99 mmol/L (98-107); Estimated Glomerular Filt Rate > 60 mL/min (>60); Globulin 2.8 g/dL (1.7-4.1); Glucose 100 mg/dL (80-110); HEMOLYSIS 19 (0-50); Lipase 70 U/L (23-300); Potassium 4.5 mmol/L (3.4-5.1); Sodium 134 mmol/L (137-145); Total Protein 6.6 g/dL (6.3-8.2)
== END ==
PROVIDERS: PCP Family Medicine; Referring Provider Family Medicine; Visit Provider Family Medicine
DX: R10.13 Epigastric pain (principal); M76.60 Achilles tendinitis, unspecified leg
CPT/HCPCS: 36415; 80053; 83690; 85025

== ENCOUNTER 2023-08-08 13:22 | Day surgery (SDC) | payer MEDICARE, BC, SELFPAY ==
--- NOTE | 2023-08-08 | PATH_ITS ---
[facility] Accession Number: [id number] No. of containers..02 Tissue . 01 Material submitted: . PART A: duodenum - DUODENAL BIOPSIES PART B: gastrointestinal site - ANTRAL . 01 Diagnosis: A. Duodenal Biopsies: Small bowel mucosa with no diagnostic abnormality. Negative for active inflammation, dysplasia, and malignancy. . B. Antral: Gastric antral and body-type mucosa with mild chronic gastritis. Negative for Helicobacter organisms by immunohistochemistry. Negative for intestinal metaplasia. Negative for dysplasia or malignancy. MRV 08/21/2023 1201 Local . 01 Electronically signed: . Lynda Vo MD, Pathologist NPI- [id number] . 01 Gross description: . A. Received in formalin, labeled with the patient's name, , and duodenal biopsy, consists of two varela soft tissue fragments ranging from 0.1 to 0.2 cm in greatest dimension. Submitted entirely in cassette A1. B. Received in formalin, labeled with the patient's name, , and antral biopsies, consists of four varela soft tissue fragments ranging from 0.1 to 0.3 cm in greatest dimension. Submitted entirely in cassette B1. ([id number]) /MRV 08/09/2023 1813 Local . 01 Microscopic: . B. An immunohistochemical stain was performed to evaluate for Helicobacter organisms and is negative. The control stain showed appropriate reactivity. . . * This test was developed and its performance characteristics determined by [facility]. It has not been cleared or approved by the U.S. Food and Drug Administration. The FDA has determined that such clearance or approval is not necessary. This test is used for clinical purposes. It should not be regarded as investigational or for research. . 01 Pathologist provided ICD-10: K29.70 . 01 CPT . 167278, 623143, N76712 Specimen Comment: A courtesy copy of this report has been sent to [phone] Performed at: 01 [facility] [address] [place] [address], [place], [place] [id number] MD Sean Irby MD Phone: [phone]
[2023-08-08 13:47] VITALS: BP 133/76; PULSE 73; RESP 18; TEMP 37; O2SAT 97
[2023-08-08] MEDS: LACTATED RINGERS 1,000 ML 42 ML IV (14:17)
--- NOTE | 2023-08-08 15:23 | PM.PREOP ---
Pre-operative Note COVID-19 COVID-19 status: Not tested Interval Note History & Physical reviewed/Exam performed by Physician: Yes Changes to H&P: No ASA Class (for procedural sedation): II
--- NOTE | 2023-08-08 15:57 | PM.OP.EGD ---
Operative Date/Time/Diagnoses Date of procedure: 08/08/23 Time of procedure: 15:57 Pre-op diagnosis: Epigastric pain Post-op diagnosis: same Procedure & Clinicians Study performed: Esophagogastroduodenoscopy Same procedure as scheduled: Yes Surgeon: Antony Stearns Procedure Notes Procedure in detail: Surgeon: Antony Stearns MD Anesthesia: Tonya Goyal CRNA A timeout was performed. A bite blocked was placed. The patient was positioned in the supine position. Anesthesia was administered. The endoscope was inserted through the bite block and passed through the esophagus and stomach and into the duodenum. The duodenal mucosa appeared normal. Random biopsies were taken from the duodenal. The scope was withdrawn into the duodenal bulb and no abnormalities were seen. The scope was withdrawn into the stomach. There was mild antritis and random biopsies were taken from the antrum. The rest of the stomach was normal. The scope was retroflexed and no hiatal hernia was seen. The scope was withdrawn into the esophagus and no abnormalities were seen. The remainder of the esophagus was normal. The scope was withdrawn. The patient was awakened and brought to recovery. Sedation time: 7 minutes Findings: Mild antritis Post-procedure Disposition: PACU
[2023-08-08 16:00] VITALS: BP 102/64; PULSE 60; RESP 20; TEMP 36.1; O2SAT 97
[2023-08-08 16:05] VITALS: BP 101/69; PULSE 60; RESP 14; O2SAT 99
[2023-08-08 16:10] VITALS: BP 106/71; PULSE 66; RESP 18; O2SAT 100
[2023-08-08 16:25] VITALS: BP 117/78; PULSE 63; RESP 19; TEMP 36.1; O2SAT 100
== END 2023-08-08 16:30 | disposition home or self-care (01) ==
PROVIDERS: PCP Family Medicine; Referring Provider Surgery; Visit Provider Surgery
PROC: 0DJ08ZZ Inspection of Upper Intestinal Tract, Via Natural or Artificial Opening Endoscopic (ICD-10-PCS; CPT 43235; principal; 2023-08-08 14:45)
DX: K29.50 Unspecified chronic gastritis without bleeding (principal)
CPT/HCPCS: 43235; J2704

== ENCOUNTER → 2023-09-12 07:27 | Outpatient (CLI) | payer MEDICARE, BC, SELFPAY ==
[2023-09-12 08:47] LABS: Testosterone 708 ng/dL (71.8-623)
== END ==
LOC: LAB 07:28
PROVIDERS: PCP Family Medicine; Referring Provider Urology; Visit Provider Urology
DX: R79.89 Other specified abnormal findings of blood chemistry (principal); Z90.79 Acquired absence of other genital organ(s)
CPT/HCPCS: 36415; 84403

== ENCOUNTER → 2023-09-18 07:09 | Outpatient (CLI) | payer MEDICARE, BC, SELFPAY ==
[2023-09-18 08:58] LABS: Testosterone 156 ng/dL (71.8-623)
== END ==
PROVIDERS: PCP Family Medicine; Referring Provider Urology; Visit Provider Urology
DX: R79.89 Other specified abnormal findings of blood chemistry (principal); Z90.79 Acquired absence of other genital organ(s)
CPT/HCPCS: 36415; 84403

== ENCOUNTER → 2024-03-11 06:57 | Outpatient (CLI) | payer MEDICARE, BC, SELFPAY ==
[2024-03-11 08:52] LABS: Testosterone 551 ng/dL (71.8-623)
== END ==
PROVIDERS: PCP Family Medicine; Referring Provider Urology; Visit Provider Urology
DX: R79.89 Other specified abnormal findings of blood chemistry (principal); Z90.79 Acquired absence of other genital organ(s)
CPT/HCPCS: 36415; 84403

== ENCOUNTER → 2024-03-18 06:51 | Outpatient (CLI) | payer MEDICARE, BC, SELFPAY ==
[2024-03-18 08:25] LABS: Hematocrit 41.3 % (41-53); Hemoglobin 14.1 g/dL (13.5-17.5); Mean Corpuscular HGB Conc 34.1 % (30-36); Mean Corpuscular Hemoglobin 31.6 PG (26-34); Mean Corpuscular Volume 92.7 fL (80-100); Platelet Count 265 X10^3/uL (150-400); Red Blood Cell Count 4.46 X10^6/uL (4.5-5.9); White Blood Cell Count 4.9 X10^3/uL (4.5-11.0)
[2024-03-18 08:35] LABS: Alanine Aminotransferase 21 IU/L (<50); Albumin 3.5 g/dL (3.5-5.0); Albumin Globulin Ratio 1.3 (1.0-2.8); Alkaline Phosphatase 48 U/L (38-126); Aspartate Aminotransferase 26 IU/L (17-59); BUN Creatinine Ratio 27.5 (6-22); Bilirubin Total 0.7 mg/dL (0.2-1.3); Blood Urea Nitrogen 25 mg/dL (9-20); Calcium 8.7 mg/dL (8.4-10.2); Carbon Dioxide 29 mmol/L (22-32); Chloride 105 mmol/L (98-107); Cholesterol 187 mg/dL (140-199); Estimated Glomerular Filt Rate > 60 mL/min (>60); Globulin 2.6 g/dL (1.7-4.1); Glucose 108 mg/dL (80-110); HDL Cholesterol 41 mg/dL (40-60); HEMOLYSIS < 15 (0-50); LDL Cholesterol Calculated 111 mg/dL (<100); Potassium 4.5 mmol/L (3.4-5.1); Sodium 138 mmol/L (137-145); Total Protein 6.1 g/dL (6.3-8.2); Triglycerides 173 mg/dL (35-150)
[2024-03-18 09:06] LABS: Prostate Specific Antigen 1.18 ng/mL (0.10-4.00)
[2024-03-18 09:08] LABS: Testosterone 139 ng/dL (71.8-623)
== END ==
LOC: LAB 06:52
PROVIDERS: PCP Family Medicine; Referring Provider Urology; Visit Provider Urology
DX: R79.89 Other specified abnormal findings of blood chemistry (principal); Z90.79 Acquired absence of other genital organ(s); Z79.890 Hormone replacement therapy
CPT/HCPCS: 36415; 80053; 80061; 84153; 84403; 85027

== ENCOUNTER → 2024-05-16 12:04 | Outpatient (CLI) | payer MEDICARE, BC, SELFPAY ==
--- NOTE | 2024-05-16 | DI.MRI.S_ITS ---
PROCEDURE: MR KNEE RT WO CON INDICATIONS: Unspecified internal derangement of right knee TECHNIQUE: Noncontrast sagittal PD fast spin echo and T2 fast spin echo with fat saturation, sagittal 3-D FLASH with fat saturation; coronal T1 spin echo and PD fast spin echo with fat saturation, and axial PD fast spin echo with fat saturation through the knee. COMPARISON: None. FINDINGS: Image quality: Excellent. Menisci: In the medial meniscus, there is full-thickness radial tear of the meniscus body. There is a meniscus flap extending from the medial meniscus body into the superior gutter, measuring approximately 8 mm. The lateral meniscus is unremarkable. Cruciate ligaments: The anterior and posterior cruciate ligaments appear intact. Medial structures: The medial collateral ligament appears intact. The posterior oblique ligament, semimembranosus tendon insertions, oblique popliteal ligament, and meniscocapsular junction appear intact. Visualized portions of the pes anserinus tendons appear normal. No abnormal bursal fluid. Lateral structures: The lateral collateral ligament, long and short heads of the biceps femoris tendon appear intact. The popliteus tendon appears normal; the popliteofibular ligament appears intact. The posterosuperior and anteroinferior popliteomeniscal fascicles appear intact. The arcuate and fabellofibular ligaments appear intact, on either side of the lateral inferior geniculate artery. Iliotibial band appears normal. Anterior structures: The quadriceps and patellar tendons appear intact. Patellar alignment is normal. No femoral trochlear dysplasia or ventral trochlear prominence. No edema in the infrapatellar fat pad. Bones and cartilage: There is focal full-thickness chondral loss in the central trochlea, with mild subchondral marrow edema. In the medial compartment, there is mild chondral thinning in the weight-bearing portion of the femoral condyle. Mild marrow edema in the peripheral aspect of the medial tibial plateau, reactive. The cartilage of the lateral compartment is well maintained. No acute fracture. Joint space: There is physiologic knee joint fluid. No Abarca's cyst. Normal appearing synovial plicae are incidentally noted. IMPRESSION: 1. Full-thickness radial tear of the medial meniscus body with a meniscal flap and mild subjacent reactive marrow edema in the medial tibial plateau. 2. 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 Dictated by: Dorie Arellano M.D. on 05/17/2024 at 10:33 Approved by: Dorie Arellano M.D. on 05/17/2024 at 10:42
== END ==
PROVIDERS: PCP Family Medicine; Referring Provider Orthopaedic Surgery Foot and Ankle Surgery; Visit Provider Orthopaedic Surgery Foot and Ankle Surgery
DX: S83.241A Other tear of medial meniscus, current injury, right knee, initial encounter (principal); M22.41 Chondromalacia patellae, right knee
CPT/HCPCS: 73721

== ENCOUNTER → 2024-09-16 07:12 | Outpatient (CLI) | payer MEDICARE, BC, SELFPAY ==
[2024-09-16 08:35] LABS: Add Manual Diff / Slide Review NO; Basophils Absolute Auto 100 /uL (0-100); Basophils Percent Auto 2.5 % (0-2); Eosinophils Absolute Auto 500 /uL (0-450); Hematocrit 42.9 % (41-53); Hemoglobin 14.2 g/dL (13.5-17.5); Lymphocytes Absolute Auto 1400 /uL (1100-4500); Lymphocytes Percent Auto 26.7 % (25-40); Mean Corpuscular HGB Conc 33.1 % (30-36); Mean Corpuscular Hemoglobin 29.8 PG (26-34); Mean Corpuscular Volume 90.2 fL (80-100); Monocytes Absolute Auto 600 /uL (0-900); Monocytes Percent Auto 11.4 % (3-14); Neutrophils Absolute Auto 2600 /uL (1500-7000); Neutrophils Percent Auto 50.4 % (50-75); Platelet Count 290 X10^3/uL (150-400); Red Blood Cell Count 4.76 X10^6/uL (4.5-5.9); Red Cell Distribution Width 13.6 % (11.6-14.8); White Blood Cell Count 5.1 X10^3/uL (4.5-11.0)
[2024-09-16 08:56] LABS: Alanine Aminotransferase 20 IU/L (<50); Albumin 3.7 g/dL (3.5-5.0); Albumin Globulin Ratio 1.5 (1.0-2.8); Alkaline Phosphatase 51 U/L (38-126); Aspartate Aminotransferase 25 IU/L (17-59); BUN Creatinine Ratio 23.8 (6-22); Bilirubin Total 0.9 mg/dL (0.2-1.3); Blood Urea Nitrogen 24 mg/dL (9-20); Calcium 9.6 mg/dL (8.4-10.2); Carbon Dioxide 27 mmol/L (22-32); Chloride 102 mmol/L (98-107); Cholesterol 190 mg/dL (140-199); Estimated Glomerular Filt Rate > 60 mL/min (>60); Globulin 2.4 g/dL (1.7-4.1); Glucose 101 mg/dL (80-110); HDL Cholesterol 36 mg/dL (40-60); HEMOLYSIS < 15 (0-50); LDL Cholesterol Calculated 126 mg/dL (<100); Potassium 4.7 mmol/L (3.4-5.1); Sodium 135 mmol/L (137-145); Total Protein 6.1 g/dL (6.3-8.2); Triglycerides 140 mg/dL (35-150)
[2024-09-16 09:27] LABS: Prostate Specific Antigen Scrn 1.93 ng/mL (0.1-4.0)
[2024-09-16 09:30] LABS: Testosterone 121 ng/dL (71.8-623)
== END ==
PROVIDERS: PCP Family Medicine; Referring Provider Urology; Visit Provider Urology
DX: Z79.890 Hormone replacement therapy (principal); Z12.5 Encounter for screening for malignant neoplasm of prostate
CPT/HCPCS: 36415; 80053; 80061; 84403; 85025; G0103

== ENCOUNTER → 2024-09-23 07:19 | Outpatient (CLI) | payer MEDICARE, BC, SELFPAY ==
[2024-09-23 08:45] LABS: Testosterone 504 ng/dL (71.8-623)
== END ==
PROVIDERS: PCP Family Medicine; Referring Provider Urology; Visit Provider Urology
DX: Z51.81 Encounter for therapeutic drug level monitoring (principal); Z79.890 Hormone replacement therapy
CPT/HCPCS: 36415; 84403

== ENCOUNTER → 2025-03-28 06:58 | Outpatient (CLI) | payer MEDICARE, BC, SELFPAY ==
--- NOTE | 2025-03-28 07:03 | EKG_ITS ---
[address] [address] Test Date: 2025-03-28 Pat Name: Ludwig Song Department: [facility] Room: Gender: Male [employer]: LARS : 1950 Requested By: Order Number: [id number] Reading MD: Shahriar Carmona Measurements Intervals [place] Rate: 72 P: 16 PA: 154 QRS: 2 QRSD: 86 T: 24 QT: 410 QTc: 448 Interpretive Statements Normal sinus rhythm Inferior infarct , age undetermined Electronically Signed On 03-28-2025 18:30:01 PDT by Shahriar Carmona
[2025-03-28 07:31] LABS: Add Manual Diff / Slide Review NO; Hematocrit 38.2 % (41-53); Hemoglobin 12.6 g/dL (13.5-17.5); Lymphocytes Absolute Auto 1300 /uL (1100-4500); Mean Corpuscular HGB Conc 32.9 % (30-36); Mean Corpuscular Hemoglobin 27.5 PG (26-34); Mean Corpuscular Volume 83.7 fL (80-100); Platelet Count 328 X10^3/uL (150-400)
[2025-03-28 07:40] LABS: Hemoglobin A1C% w Est Avg Glu 5.6 % (4.0-6.0)
[2025-03-28 07:47] LABS: Blood Urea Nitrogen 16 mg/dL (9-20); Calcium 9.6 mg/dL (8.4-10.2); Carbon Dioxide 26 mmol/L (22-32); Chloride 103 mmol/L (98-107); Estimated Glomerular Filt Rate > 60 mL/min (>60); Glucose 107 mg/dL (70-99); HEMOLYSIS < 15 (0-50); Potassium 4.5 mmol/L (3.4-5.1); Sodium 135 mmol/L (137-145)
== END ==
LOC: RESP 07:01
PROVIDERS: PCP Family Medicine; Referring Provider Orthopaedic Surgery Foot and Ankle Surgery; Visit Provider Orthopaedic Surgery Foot and Ankle Surgery
DX: Z01.818 Encounter for other preprocedural examination (principal); R73.9 Hyperglycemia, unspecified; Z01.812 Encounter for preprocedural laboratory examination
CPT/HCPCS: 36415; 80048; 83036; 85025; 93005

== ENCOUNTER 2025-05-31 22:45 | Emergency (ER) | payer MEDICARE, BC, SELFPAY ==
[2025-05-31 23:23] VITALS: BP 169/89; PULSE 78; RESP 18; TEMP 36.3; O2SAT 96; BMI 27.1
--- NOTE | 2025-05-31 23:40 | EKG_ITS ---
[address] [address] Test Date: 2025-05-31 Pat Name: Ludwig Song Department: [facility] Room: Gender: Male [employer]: SERG : 1950 Requested By: Order Number: [id number] Reading MD: Justin Nova MD Measurements Intervals [place] Rate: 75 P: 29 NH: 156 QRS: 4 QRSD: 80 T: 19 QT: 380 QTc: 424 Interpretive Statements Sinus rhythm with premature supraventricular complexes Inferior infarct , age undetermined Electronically Signed On 06-01-2025 14:44:21 PDT by Justin Nova MD
[2025-05-31 23:46] LABS: Add Manual Diff / Slide Review NO; Hematocrit 31.6 % (41-53); Hemoglobin 10.6 g/dL (13.5-17.5); Lymphocytes Absolute Auto 400 /uL (1100-4500); Mean Corpuscular HGB Conc 33.5 % (30-36); Mean Corpuscular Hemoglobin 26.5 PG (26-34); Mean Corpuscular Volume 79.2 fL (80-100); Platelet Count 375 X10^3/uL (150-400)
[2025-05-31 23:56] LABS: INR 1.1 (0.9-1.3); Prothrombin Time 12.1 SECONDS (9.4-12.5)
[2025-05-31 23:59] LABS: PTT Partial Thromboplastin Tim 27 SECONDS (25.1-36.5)
[2025-06-01] VITALS (14 sets, daily range): BP systolic 127–160; BP diastolic 74–90; PULSE 74–110; RESP 16–40; O2SAT 95–99
[2025-06-01 00:14] LABS: Alanine Aminotransferase 39 IU/L (<50); Albumin 3.6 g/dL (3.5-5.0); Albumin Globulin Ratio 1.2 (1.0-2.8); Alkaline Phosphatase 117 U/L (38-126); Blood Urea Nitrogen 11 mg/dL (9-20); Calcium 8.6 mg/dL (8.4-10.2); Carbon Dioxide 26 mmol/L (22-32); Chloride 87 mmol/L (98-107); Creatine Kinase 52 U/L (55-170); Estimated Glomerular Filt Rate > 60 mL/min (>60); Globulin 3.0 g/dL (1.7-4.1); Glucose 110 mg/dL (70-99); HEMOLYSIS < 15 (0-50); Lipase 89 U/L (23-300); Magnesium 1.7 mg/dL (1.6-2.3); Potassium 4.4 mmol/L (3.4-5.1); Sodium 122 mmol/L (137-145); Total Protein 6.6 g/dL (6.3-8.2)
[2025-06-01 00:26] LABS: NT-proBNP (BNP-Adult 18+) 165 pg/mL (<450); Troponin I 0.026 ng/mL (0.01-0.034)
--- NOTE | 2025-06-01 04:00 | PC.NURSE ---
pt c/o intermittent c/p and HTN with hot flashes,
--- NOTE | 2025-06-01 04:10 | ED.GENADULT ---
HPI - General Adult <Romulo Cornell MD - Last Filed: 06/01/25 16:34> General Chief complaint: Hypertension Stated complaint: Reoccurring hot flashes, dizziness, BP spikes Time Seen by Provider: 06/01/25 03:53 Source: patient Mode of arrival: Ambulatory History of Present Illness HPI narrative: 75-year-old male has one-week duration of intermittent central chest pain with epigastric and supraumbilical abdominal pain, prior endoscopy unrevealing, history of remote cholecystectomy. Episodes for the last week or so are getting more intense and increasing in frequency. Initially just for fleeting minutes, last episode 5 hours duration, resolved without specific treatment. Patient had recent self diagnosis of pneumonia due to a cough, took Z-Abdullahi he had purchased from [employer], no improvement of symptoms. No coughing recent. No injury trauma or new activities. No fevers or chills. No painful or frequent urination. No history of kidney stones recalled. Related Data Home Medications ?Medication ?Instructions ?Recorded ?Confirmed omeprazole magnesium 20 mg 20 mg PO DAILY 10/24/19 03/26/24 tablet,delayed release (Prilosec OTC) ascorbic acid (vitamin C) 1,000 mg 1 g PO Q6H 03/13/23 03/26/24 capsule cholecalciferol (vitamin D3) 125 125 mcg PO DAILY 03/13/23 03/26/24 mcg (5,000 unit) capsule Previous Rx's ?Medication ?Instructions ?Recorded testosterone cypionate 200 mg/mL 80 mg (0.4 mL) IM Q2W #10 mL 07/23/24 intramuscular oil Allergies Allergy/AdvReac Type Severity Reaction Status Date / Time latex (LATEX) Allergy Mild Rash Verified 09/21/23 14:12 meperidine (MEPERIDINE) Allergy Mild SKIN RASH Verified 09/21/23 14:12 Patient History <Romulo Cornell MD - Last Filed: 06/01/25 16:34> Medical History (Updated 06/01/25 @ 10:12 by Arcelia Story DO) Long-term current use of testosterone replacement therapy History of tobacco use History of immunotherapy History of bladder cancer History of Mohs micrographic surgery for skin cancer Hx of pneumococcal pneumonia Hx of undescended testicle Melanoma (~2006) Osteoarthritis (~2009) Allergies (~195) Abnormal chest xray (~2009) Shoulder pain (~2019) MRSA (methicillin resistant Staphylococcus aureus) (~1955) Measles (~1955) Chicken pox (~1954) Colon polyps (~2002) Low testosterone (~1995) Benign essential HTN Cataract of left eye Basal cell carcinoma Frozen shoulder Inguinal hernia Melanoma in situ (~2006) Bone spur History of epididymitis Bladder cancer Urinary urgency Constipation Bowel obstruction Gallbladder disease GERD (gastroesophageal reflux disease) Arthritis Cough History of pneumonia Hyperlipemia Surgical History Hx of bilateral cataract extraction History of transurethral resection of bladder tumor (TURBT) Hx of inguinal hernia repair Hx of shoulder surgery History of testicular surgery History of epididymectomy Hx of cholecystectomy Hx of cystoscopy Anesthesia History of orchiectomy, bilateral History of YAG laser capsulotomy of lens of left eye Hx of transurethral destruction of bladder lesion History of umbilical hernia repair History of ERCP H/O varicose vein ligation Hx of tonsillectomy Family History Father Diabetes mellitus Migraines Brother Crohn's disease Mother Cancer Social History marital status: number of children: 4 household members: spouse lives independently: Yes occupational status: previously employed Smoking Status: Former smoker Tobacco: How many years used: 7 alcohol intake: current substance use type: does not use caffeine: No Type(s) of exercise: other frequency: 3-4 times per week duration: > 90 minutes/day Smoking Status: Former smoker alcohol intake frequency: a few times a week Exam <Romulo Cornell MD - Last Filed: 06/01/25 16:34> Narrative Exam Narrative: GENERAL: Well-developed patient, in mild distress. HEAD: Atraumatic. Normocephalic. EYES: Pupils equal round and reactive. Extraocular motions intact. No scleral icterus. No injection or drainage. ENT: Nose without bleeding, purulent drainage. Airway patent. NECK: Trachea midline. Moves neck well. CARDIOVASCULAR: Regular rate and rhythm without murmurs, gallops, or rubs. RESPIRATORY: Clear to auscultation. Breath sounds equal bilaterally. No wheezes, rales, or rhonchi. GASTROINTESTINAL: Abdomen soft, nondistended. Mild tenderness epigastrium, not particularly tender right upper quadrant, nonrigid, normal bowel tones with no rushes or tinkles. EXTREMITIES: No edema or joint tenderness. BACK: Nontender without deformity or crepitance. No flank tenderness. NEURO: AOx3. Motor functions grossly nonfocal. SKIN: No rash or erythema of visible areas Initial Vital Signs Initial Vital Signs: Vital Signs Temperature 97.4 F L 05/31/25 23:23 Pulse Rate 78 05/31/25 23:23 Respiratory Rate 18 05/31/25 23:23 Blood Pressure 169/89 H 05/31/25 23:23 Pulse Oximetry 96 05/31/25 23:23 Oxygen Delivery Method Room Air 05/31/25 23:23 <Arcelia Story DO - Last Filed: 06/01/25 18:31> Initial Vital Signs Initial Vital Signs: Vital Signs Temperature 97.4 F L 05/31/25 23:23 Pulse Rate 78 05/31/25 23:23 Respiratory Rate 18 05/31/25 23:23 Blood Pressure 169/89 H 05/31/25 23:23 Pulse Oximetry 96 05/31/25 23:23 Oxygen Delivery Method Room Air 05/31/25 23:23 Course <Romulo Cornell MD - Last Filed: 06/01/25 16:34> Orders Ordered: Discontinued Medications Aspirin (Aspirin 81 Mg Chew Tab) 324 mg PO NOW ONE Stop: 05/31/25 23:32 Last Admin: 06/01/25 04:55 Dose: Not Given Documented By: Pantoprazole Sodium (Pantoprazole 40 Mg Vial) 40 mg IV NOW ONE Stop: 06/01/25 07:46 Last Admin: 06/01/25 08:10 Dose: 40 mg Documented By: PRADEEP Vital Signs Vital signs: Vital Signs - 8 hr 06/01/25 11:00 06/01/25 11:00 06/01/25 13:11 Pulse Rate 80 80 Respiratory Rate 18 20 Blood Pressure 137/87 Pulse Oximetry 97 97 Oxygen Delivery Method Room Air <Arcelia Story DO - Last Filed: 06/01/25 18:31> Orders Ordered: Discontinued Medications Aspirin (Aspirin 81 Mg Chew Tab) 324 mg PO NOW ONE Stop: 05/31/25 23:32 Last Admin: 06/01/25 04:55 Dose: Not Given Documented By: Pantoprazole Sodium (Pantoprazole 40 Mg Vial) 40 mg IV NOW ONE Stop: 06/01/25 07:46 Last Admin: 06/01/25 08:10 Dose: 40 mg Documented By: BS Vital Signs Vital signs: Vital Signs - 8 hr 06/01/25 11:00 06/01/25 11:00 06/01/25 13:11 Pulse Rate 80 80 Respiratory Rate 18 20 Blood Pressure 137/87 Pulse Oximetry 97 97 Oxygen Delivery Method Room Air Medical Decision Making <Romulo Cornell MD - Last Filed: 06/01/25 16:34> Lab Data Lab results reviewed: Yes I reviewed the patient's lab results. Lab results narrative: White blood cell count 5300, hemoglobin 10.6, platelets adequate. Glucose 110. Renal function normal. Serum CO2 and potassium normal. Sodium 122 low. Liver functions normal. Lipase 89 normal. Troponin negative/unmeasurable. BNP not elevated. 05/31/25 23:38 05/31/25 23:38 Labs: Lab Results 05/31/25 06/01/25 06/01/25 Range/Units 23:38 04:00 04:28 WBC 5.3 (4.5-11.0) X10^3/uL RBC 3.99 L (4.5-5.9) X10^6/uL Hgb 10.6 L (13.5-17.5) g/dL Hct 31.6 L (41-53) % MCV 79.2 L (80-100) fL MCH 26.5 (26-34) PG MCHC 33.5 (30-36) % RDW 16.0 H (11.6-14.8) % Plt Count 375 (150-400) X10^3/uL Neut % (Auto) 73.1 (50-75) % Lymph % (Auto) 7.2 L (25-40) % [place] % (Auto) 15.6 H (3-14) % Eos % (Auto) 3.0 (2-4) % Baso % (Auto) 1.1 (0-2) % Neut # (Auto) 3900 (3679-9906) /uL Lymph # (Auto) 400 L (0157-3625) /uL [place] # (Auto) 800 (0-900) /uL Eos # (Auto) 200 (0-450) /uL Baso # (Auto) 100 (0-100) /uL PT 12.1 (9.4-12.5) SECONDS INR 1.1 (0.9-1.3) APTT 27 (25.1-36.5) SECONDS Sodium 122 L (137-145) mmol/L Potassium 4.4 (3.4-5.1) mmol/L Chloride 87 L (98-107) mmol/L Carbon Dioxide 26 (22-32) mmol/L BUN 11 (9-20) mg/dL Creatinine 0.65 L (0.66-1.25) mg/dL Estimated GFR > 60 (>60) mL/min BUN/Creatinine Ratio 16.9 (6-22) Glucose 110 H (70-99) mg/dL Calcium 8.6 (8.4-10.2) mg/dL Magnesium 1.7 (1.6-2.3) mg/dL Total Bilirubin 0.6 (0.2-1.3) mg/dL AST 29 (17-59) IU/L ALT 39 (<50) IU/L Alkaline Phosphatase 117 (38-126) U/L Total Creatine Kinase 52 L (55-170) U/L Troponin I 0.026 < 0.012 (0.01-0.034) ng/mL NT-Pro-B Natriuret Pep 165 (<450) pg/mL Total Protein 6.6 (6.3-8.2) g/dL Albumin 3.6 (3.5-5.0) g/dL Globulin 3.0 (1.7-4.1) g/dL Albumin/Globulin Ratio 1.2 (1.0-2.8) Lipase 89 (23-300) U/L Urine Color Yellow Urine Appearance Clear Urine pH 6.0 (4.5-8.0) Ur Specific [place] <=1.005 (1.000-1.035) Urine Protein Negative (Negative) Urine Glucose (UA) Negative (Negative) g/dL Urine Ketones Trace H (NEGATIVE) Urine Occult Blood Negative (Negative) Urine Nitrate Negative (Negative) Urine Bilirubin Negative (NEGATIVE) Urine Urobilinogen 0.2 (0.2) E.U./dL Ur Leukocyte Esterase Negative (NEGATIVE) Urine RBC None seen (0-5/HPF) Urine WBC None seen (0-5/HPF) Ur Squamous Epith Cells None seen (0-5/HPF) Urine Bacteria None seen (None) Ur Culture Indicated? Cult not indicated Vol Urine Centrifuged 10ml (spun) 06/01/25 Range/Units 06:37 WBC (4.5-11.0) X10^3/uL RBC (4.5-5.9) X10^6/uL Hgb (13.5-17.5) g/dL Hct (41-53) % MCV (80-100) fL MCH (26-34) PG MCHC (30-36) % RDW (11.6-14.8) % Plt Count (150-400) X10^3/uL Neut % (Auto) (50-75) % Lymph % (Auto) (25-40) % [place] % (Auto) (3-14) % Eos % (Auto) (2-4) % Baso % (Auto) (0-2) % Neut # (Auto) (5758-7045) /uL Lymph # (Auto) (1574-6517) /uL [place] # (Auto) (0-900) /uL Eos # (Auto) (0-450) /uL Baso # (Auto) (0-100) /uL PT 12.2 (9.4-12.5) SECONDS INR 1.1 (0.9-1.3) APTT (25.1-36.5) SECONDS Sodium (137-145) mmol/L Potassium (3.4-5.1) mmol/L Chloride (98-107) mmol/L Carbon Dioxide (22-32) mmol/L BUN (9-20) mg/dL Creatinine (0.66-1.25) mg/dL Estimated GFR (>60) mL/min BUN/Creatinine Ratio (6-22) Glucose (70-99) mg/dL Calcium (8.4-10.2) mg/dL Magnesium (1.6-2.3) mg/dL Total Bilirubin (0.2-1.3) mg/dL AST (17-59) IU/L ALT (<50) IU/L Alkaline Phosphatase (38-126) U/L Total Creatine Kinase (55-170) U/L Troponin I (0.01-0.034) ng/mL NT-Pro-B Natriuret Pep (<450) pg/mL Total Protein (6.3-8.2) g/dL Albumin (3.5-5.0) g/dL Globulin (1.7-4.1) g/dL Albumin/Globulin Ratio (1.0-2.8) Lipase (23-300) U/L Urine Color Urine Appearance Urine pH (4.5-8.0) Ur Specific [place] (1.000-1.035) Urine Protein (Negative) Urine Glucose (UA) (Negative) g/dL Urine Ketones (NEGATIVE) Urine Occult Blood (Negative) Urine Nitrate (Negative) Urine Bilirubin (NEGATIVE) Urine Urobilinogen (0.2) E.U./dL Ur Leukocyte Esterase (NEGATIVE) Urine RBC (0-5/HPF) Urine WBC (0-5/HPF) Ur Squamous Epith Cells (0-5/HPF) Urine Bacteria (None) Ur Culture Indicated? Vol Urine Centrifuged ECG Data Attestation: I personally reviewed and interpreted this ECG as follows: Interpretation: 2340, sinus rhythm with premature supraventricular complex, ventricular rate 75. No obvious ST segment elevation or depression changes. SC 156, QRS 80, QTC 424. MDM Narrative Medical decision making narrative: 75-year-old male with history of remote cholecystectomy, having one-week duration intermittent flushing like sensation in discomfort upper abdomen and chest central, sometimes radiating to the neck. Episodes are getting longer and more frequent. No passing out or near-syncope symptoms. Not associated with shortness of breath or palpitations or racing heart like symptoms. Does not radiate to the back. Mild tenderness epigastrium. DDx consider DENA, gastritis, PUD, colitis, diverticulitis, aortic dissection, aortic aneurysm, atypical ACS, other. Initial lab data: White blood cell count 5300, hemoglobin 10.6, platelets adequate. Glucose 110. Renal function normal. Serum CO2 and potassium normal. Sodium 122 low. Liver functions normal. Lipase 89 normal. Troponin negative/unmeasurable. BNP not elevated. Renal function adequate. CT angiogram chest abdomen and pelvis ordered. CT angiogram chest, with IV CT abdomen and pelvis. Impression: ?No central pulmonary embolus or aortic dissection. Moderate size pericardial effusion and left pleural effusion. No evidence of colitis diverticulitis bowel obstruction obstructive uropathy or acute appendicitis.. See tele radiology report. 0630, Patient not aware of previous diagnosis of pericardial effusion or left pleural effusion. Echocardiogram ordered, if can be performed here Monday today (on-call here [phone]). 0700, cardiac echo ordered for later today. Signed out to Dr Story. 06/01/25 Dr. Story: Patient signed out to myself for sensation of intermittent flushing like sensation. Patient's workup was reviewed, patient has had count 5.3 hemoglobin is 10.6 which is microcytic last for comparison was 12.6 in March of 2025 with hemoglobin of 14 in September. Platelets are 375. INR is 1.1, sodium is 122 this is down from 718 25 which was 135 potassium 4.4 with chloride 87 a CO2 of 26 creatinine 0.65 BUN 11, glucose is 110, LFTs are appropriate troponin 0.026 with a repeat of less than 0.012 and a BNP of 165. Lipase was negative at 89. EKG shows sinus rhythm premature complexes rate of 75, no acute ST elevation patient has a inverted T-waves in V2 V3. EKG appears similar on 03/28/2025 at V1/V2. Urine shows trace ketones, otherwise negative. Patient had CTA chest abdomen pelvis, atherosclerosis aorta and coronary arteries no central PE or aortic dissection. Dependent atelectasis. Pleural parenchymal scarring in the lung apices. Liver has a nodular contour status post cholecystectomy. Indeterminate enhancing splenic masses measuring up to 2.2 cm right renal cortical cyst. No lymphadenopathy, no abdominal ascites. Scarring within the lower pole of the left kidney. No free fluid or pelvis or adenopathy prostatic calcification. Diverticulosis, large volume of stool in the colon. Multilevel spondylitic changes thoracolumbar spine. Patient does have a moderate size pericardial effusion and left pleural effusion. Patient is seen and evaluated by myself. Dr. Cornell has ordered ECHO, tech in department at 1015am. Patient does appear to have hyponatremia new since March of 2025 as well as a moderate size pericardial effusion and left pleural effusion as well as anemia. Patient has been hemodynamically stable in apartment. Spoke with Dr. Paul, cardiology notes [id number] pericardial effusion with fibrinous material suggestive of exact dates. Near the apex not much fluid behind the left posterior while trivial to small pericardial effusion. Suspect increased intra pericardial pressure however no johnny cardiac tamponade. Compared to prior study pericardial effusion is new. Spoke with the patient you very much desires discharge. He has seen Dr. Farr in the past we will reach out tomorrow for follow up. Patient and I also discuss his hyponatremia as well as what appears to be anemia that has been slowly changing over time. Patient needs to follow up in the short term for all 3 of these. He does not wish for observation. <Arcelia Cheryl Story, DO - Last Filed: 06/01/25 18:31> Lab Data Labs: Lab Results 05/31/25 06/01/25 06/01/25 Range/Units 23:38 04:00 04:28 WBC 5.3 (4.5-11.0) X10^3/uL RBC 3.99 L (4.5-5.9) X10^6/uL Hgb 10.6 L (13.5-17.5) g/dL Hct 31.6 L (41-53) % MCV 79.2 L (80-100) fL MCH 26.5 (26-34) PG MCHC 33.5 (30-36) % RDW 16.0 H (11.6-14.8) % Plt Count 375 (150-400) X10^3/uL Neut % (Auto) 73.1 (50-75) % Lymph % (Auto) 7.2 L (25-40) % [place] % (Auto) 15.6 H (3-14) % Eos % (Auto) 3.0 (2-4) % Baso % (Auto) 1.1 (0-2) % Neut # (Auto) 3900 (6495-3883) /uL Lymph # (Auto) 400 L (8268-4316) /uL [place] # (Auto) 800 (0-900) /uL Eos # (Auto) 200 (0-450) /uL Baso # (Auto) 100 (0-100) /uL PT 12.1 (9.4-12.5) SECONDS INR 1.1 (0.9-1.3) APTT 27 (25.1-36.5) SECONDS Sodium 122 L (137-145) mmol/L Potassium 4.4 (3.4-5.1) mmol/L Chloride 87 L (98-107) mmol/L Carbon Dioxide 26 (22-32) mmol/L BUN 11 (9-20) mg/dL Creatinine 0.65 L (0.66-1.25) mg/dL Estimated GFR > 60 (>60) mL/min BUN/Creatinine Ratio 16.9 (6-22) Glucose 110 H (70-99) mg/dL Calcium 8.6 (8.4-10.2) mg/dL Magnesium 1.7 (1.6-2.3) mg/dL Total Bilirubin 0.6 (0.2-1.3) mg/dL AST 29 (17-59) IU/L ALT 39 (<50) IU/L Alkaline Phosphatase 117 (38-126) U/L Total Creatine Kinase 52 L (55-170) U/L Troponin I 0.026 < 0.012 (0.01-0.034) ng/mL NT-Pro-B Natriuret Pep 165 (<450) pg/mL Total Protein 6.6 (6.3-8.2) g/dL Albumin 3.6 (3.5-5.0) g/dL Globulin 3.0 (1.7-4.1) g/dL Albumin/Globulin Ratio 1.2 (1.0-2.8) Lipase 89 (23-300) U/L Urine Color Yellow Urine Appearance Clear Urine pH 6.0 (4.5-8.0) Ur Specific [place] <=1.005 (1.000-1.035) Urine Protein Negative (Negative) Urine Glucose (UA) Negative (Negative) g/dL Urine Ketones Trace H (NEGATIVE) Urine Occult Blood Negative (Negative) Urine Nitrate Negative (Negative) Urine Bilirubin Negative (NEGATIVE) Urine Urobilinogen 0.2 (0.2) E.U./dL Ur Leukocyte Esterase Negative (NEGATIVE) Urine RBC None seen (0-5/HPF) Urine WBC None seen (0-5/HPF) Ur Squamous Epith Cells None seen (0-5/HPF) Urine Bacteria None seen (None) Ur Culture Indicated? Cult not indicated Vol Urine Centrifuged 10ml (spun) 06/01/25 Range/Units 06:37 WBC (4.5-11.0) X10^3/uL RBC (4.5-5.9) X10^6/uL Hgb (13.5-17.5) g/dL Hct (41-53) % MCV (80-100) fL MCH (26-34) PG MCHC (30-36) % RDW (11.6-14.8) % Plt Count (150-400) X10^3/uL Neut % (Auto) (50-75) % Lymph % (Auto) (25-40) % [place] % (Auto) (3-14) % Eos % (Auto) (2-4) % Baso % (Auto) (0-2) % Neut # (Auto) (2362-7024) /uL Lymph # (Auto) (7644-1213) /uL [place] # (Auto) (0-900) /uL Eos # (Auto) (0-450) /uL Baso # (Auto) (0-100) /uL PT 12.2 (9.4-12.5) SECONDS INR 1.1 (0.9-1.3) APTT (25.1-36.5) SECONDS Sodium (137-145) mmol/L Potassium (3.4-5.1) mmol/L Chloride (98-107) mmol/L Carbon Dioxide (22-32) mmol/L BUN (9-20) mg/dL Creatinine (0.66-1.25) mg/dL Estimated GFR (>60) mL/min BUN/Creatinine Ratio (6-22) Glucose (70-99) mg/dL Calcium (8.4-10.2) mg/dL Magnesium (1.6-2.3) mg/dL Total Bilirubin (0.2-1.3) mg/dL AST (17-59) IU/L ALT (<50) IU/L Alkaline Phosphatase (38-126) U/L Total Creatine Kinase (55-170) U/L Troponin I (0.01-0.034) ng/mL NT-Pro-B Natriuret Pep (<450) pg/mL Total Protein (6.3-8.2) g/dL Albumin (3.5-5.0) g/dL Globulin (1.7-4.1) g/dL Albumin/Globulin Ratio (1.0-2.8) Lipase (23-300) U/L Urine Color Urine Appearance Urine pH (4.5-8.0) Ur Specific [place] (1.000-1.035) Urine Protein (Negative) Urine Glucose (UA) (Negative) g/dL Urine Ketones (NEGATIVE) Urine Occult Blood (Negative) Urine Nitrate (Negative) Urine Bilirubin (NEGATIVE) Urine Urobilinogen (0.2) E.U./dL Ur Leukocyte Esterase (NEGATIVE) Urine RBC (0-5/HPF) Urine WBC (0-5/HPF) Ur Squamous Epith Cells (0-5/HPF) Urine Bacteria (None) Ur Culture Indicated? Vol Urine Centrifuged MDM Narrative Medical decision making narrative: 75-year-old male with history of remote cholecystectomy, having one-week duration intermittent flushing like sensation in discomfort upper abdomen and chest central, sometimes radiating to the neck. Episodes are getting longer and more frequent. No passing out or near-syncope symptoms. Not associated with shortness of breath or palpitations or racing heart like symptoms. Does not radiate to the back. Mild tenderness epigastrium. DDx consider DENA, gastritis, PUD, colitis, diverticulitis, aortic dissection, aortic aneurysm, atypical ACS, other. Initial lab data: White blood cell count 5300, hemoglobin 10.6, platelets adequate. Glucose 110. Renal function normal. Serum CO2 and potassium normal. Sodium 122 low. Liver functions normal. Lipase 89 normal. Troponin negative/unmeasurable. BNP not elevated. Renal function adequate. CT angiogram chest abdomen and pelvis ordered. CT angiogram chest, with IV CT abdomen and pelvis. Impression: ?No central pulmonary embolus or aortic dissection. Moderate size pericardial effusion and left pleural effusion. No evidence of colitis diverticulitis bowel obstruction obstructive uropathy or acute appendicitis.. See tele radiology report. 0630, Patient not aware of previous diagnosis of pericardial effusion or left pleural effusion. Echocardiogram ordered, if can be performed here Monday today (on-call here [phone]). 0700, cardiac echo ordered for later today. Signed out to Dr Story. 06/01/25 Dr. Story: Patient signed out to myself for sensation of intermittent flushing like sensation. Patient's workup was reviewed, patient has had count 5.3 hemoglobin is 10.6 which is microcytic last for comparison was 12.6 in March of 2025 with hemoglobin of 14 in September. Platelets are 375. INR is 1.1, sodium is 122 this is down from 718 25 which was 135 potassium 4.4 with chloride 87 a CO2 of 26 creatinine 0.65 BUN 11, glucose is 110, LFTs are appropriate troponin 0.026 with a repeat of less than 0.012 and a BNP of 165. Lipase was negative at 89. EKG shows sinus rhythm premature complexes rate of 75, no acute ST elevation patient has a inverted T-waves in V2 V3. EKG appears similar on 03/28/2025 at V1/V2. Urine shows trace ketones, otherwise negative. Patient had CTA chest abdomen pelvis, atherosclerosis aorta and coronary arteries no central PE or aortic dissection. Dependent atelectasis. Pleural parenchymal scarring in the lung apices. Liver has a nodular contour status post cholecystectomy. Indeterminate enhancing splenic masses measuring up to 2.2 cm right renal cortical cyst. No lymphadenopathy, no abdominal ascites. Scarring within the lower pole of the left kidney. No free fluid or pelvis or adenopathy prostatic calcification. Diverticulosis, large volume of stool in the colon. Multilevel spondylitic changes thoracolumbar spine. Patient does have a moderate size pericardial effusion and left pleural effusion. Patient is seen and evaluated by myself. Dr. Cornell has ordered ECHO, tech in department at 1015am. Patient does appear to have hyponatremia new since March of 2025 as well as a moderate size pericardial effusion and left pleural effusion as well as anemia. Patient has been hemodynamically stable in apartment. Spoke with Dr. Paul, cardiology notes [id number] pericardial effusion with fibrinous material suggestive of exact dates. Near the apex not much fluid behind the left posterior while trivial to small pericardial effusion. Suspect increased intra pericardial pressure however no johnny cardiac tamponade. Compared to prior study pericardial effusion is new. Spoke with the patient you very much desires discharge. He is ambulating very easily here in the department. He has been stand he had the door of his room requesting to leave. He has seen Dr. Farr in the past we will reach out tomorrow for follow up. Patient and I also discuss his hyponatremia as well as what appears to be anemia that has been slowly changing over time. Patient needs to follow up in the short term for all 3 of these. He does not wish for observation. Discharge Plan Departure Patient Disposition: Home Clinical Impression: Hyponatremia, Pleural effusion, Pericardial effusion, Anemia Activity Restrictions/Additional Instructions: On your workup today you have a [id number] pericardial effusion, if this increases in size it can cause something called tamponade which squeezes your heart and does not allow for your blood to flow properly. You need to follow up with Cardiology this week to have evaluation. It is also noted that your sodium is quite low this is changed since March as well as your hemoglobin has dropped slowly over time. These both should be addressed with your primary care physician you can also review them with Cardiology. Please return for any changes to mentation, new chest pain, new shortness of breath, new swelling of your extremities, lightheadedness or passing out, any vomiting, other new or concerning changes. Prescriptions: No Action testosterone cypionate 200 mg/mL oil 80 mg IM Q2W Qty: 10 0RF omeprazole magnesium [Prilosec OTC] 20 mg Tablet,Delayed Release (Dr/Ec) 20 mg PO DAILY cholecalciferol (vitamin D3) 125 mcg (5,000 unit) capsule 125 mcg PO DAILY ascorbic acid (vitamin C) 1,000 mg capsule 1 g PO Q6H Referrals: Aixa Farr MD [Physician, Cardiology] Alexis Bower DO [Primary Care Provider, Family Practice] Stand Alone Forms: Patient Portal/API
--- NOTE | 2025-06-01 04:18 | DI.CT.S_ITS ---
PROCEDURE: CT ANGIO CHEST ABDOMEN PELVIS INDICATIONS: dissection protocol TECHNIQUE: Precontrast 5 mm thick sections acquired from the lung apices to the iliac crests. After the administration of intravenous contrast, 2.5 mm thick sections again acquired from the lung apices to the iliac crests. Maximum intensity projection (MIP) oblique sagittal and coronal reformats were then acquired. For radiation dose reduction, the following was used: automated exposure control. COMPARISON: None. FINDINGS: Image quality: Diagnostic. AORTA: Thoracic aortic ectasia. Ascending aorta measures 4.1 cm while the arch measures 3.5 cm in diameter. No dissection. CHEST: Lower Neck: No enlarged lymph nodes. Thyroid: No thyroid nodules which require sonographic evaluation. Axillae: No enlarged lymph nodes. Chest Wall: Unremarkable. Lungs and Pleura: Calcified pleural plaquing. Small left pleural effusion Heart: Heart size is normal. Moderate pericardial effusion. Thoracic Vessels: Pulmonary arteries demonstrate normal size. Mediastinum and Jeanie: No enlarged lymph nodes. Esophagus: No wall thickening. No hiatal hernia. ABDOMEN: Liver: No solid mass. Gallbladder: Cholecystectomy. Biliary ducts: No biliary dilation. Pancreas: No ductal dilation. Spleen: Splenic enhancing nodules measure up to 2.3 cm Adrenal Glands: No adrenal nodules. Kidneys and Ureters: No hydronephrosis. No solid mass. No complex renal cystic lesion which requires follow up. Stomach and Bowel: Large amount of fecal debris in the colon. No obstruction. Peritoneum: No abnormal intraperitoneal fluid. No free air. Ventral Wall: No hernia. Abdominal Nodes: No retroperitoneal or mesenteric adenopathy by size criteria. Vessels: Inferior vena cava is normal in size. PELVIS: Pelvic Organs: Unremarkable. Bladder: Unremarkable. Pelvic Nodes: No enlarged lymph nodes. Miscellaneous: No inguinal hernias are seen. Bones: Unremarkable. IMPRESSION: Moderate pericardial effusion, small left pleural effusion and right calcified pleural plaquing. Mild thoracic aortic ectasia without evidence of focal aneurysm or dissection. No pulmonary emboli. Note: This final report is concordant with the preliminary after-hours interpretation provided by [facility] Approved by: Lázaro Santiago M.D. on 06/01/2025 at 9:09
[2025-06-01 04:26] LABS: Troponin I < 0.012 ng/mL (0.01-0.034)
[2025-06-01 05:02] LABS: Appearance Urine UA CLEAR; Bilirubin Urine UA NEGATIVE (NEGATIVE); Color Urine UA YELLOW; Glucose Urine UA NEGATIVE (Negative); Ketones Urine UA TRACE (NEGATIVE); Leukocyte Esterase Urine UA NEGATIVE (NEGATIVE); Nitrite Urine UA NEGATIVE (Negative); Occult Blood Urine UA NEGATIVE (Negative); Protein Urine UA NEGATIVE (Negative); Specific Gravity Urine UA <=1.005 (1.000-1.035); Urobilinogen Urine UA 0.2 E.U./dL (0.2); pH Urine UA 6.0 (4.5-8.0)
[2025-06-01 05:17] LABS: Culture Indicated Urine Cult Not Indicated
--- NOTE | 2025-06-01 06:26 | DI.ECHO.S_ITS ---
[facility] +---------+ Hospital : : [id number] : [place] : : [id number] : : Phone: [phone] Echocardiogram Report + + :Name: LAURA SANCHEZ Study Date: 06/01/2025 Height: 72 in : :Hospital ReadingLocation: Weight: 200 lb : : Gender: Male BSA: 2.1 m2 : :: 1950 Age: 75 yrs BP: 159/84 mmHg: :Reason For Study: CHEST/ ABDNOMAL PAIN, MOD PERICARDIAL : :EFFUSION ON CT : :Ordering Physician: ALVARO, : :RONNA Performed By: Erika Melgoza : :Referring: RONNA JOHN : + + Interpretation Summary The left ventricle is normal in size. The left ventricular ejection fraction is normal. The ejection fraction is estimated to be 65-70%. The right ventricle is normal in size and function. The aortic valve is trileaflet. The aortic valve is mildly calcified. The peak aortic velocity is 2.1 m/sec. The aortic valve mean gradient is 10 mmHg. There is no hemodynamically significant valvular aortic stenosis. The aortic root is mildly dilated. The ascending aorta is mild-moderately enlarged. Mild atherosclerotic plaque(s) in the aortic arch. There is a moderate to large pericardial effusion anterior to free wall of right ventricle with fibrinous material suggestive of exudates. Near the apex not much fluid. Behind the left posterior wall trivial to small pericardial effusion. No obvious diastolic RV and right atrial collapse. IVC is dilated. Suspect increase in intrapericardial pressure however at present no johnny cardiac tamponade. Blood pressure 159/84. In comparison to previous study, pericardial effusion is new. Findings were reported to [facility] physician Dr. Paniagua. Procedure: A two-dimensional transthoracic echocardiogram with color flow and Doppler was performed. The study quality was technically adequate. Comparison is made with the echocardiogram of 12/07/2020. The patient was in sinus rhythm with heart rates between 75-88 bpm during the exam. Frequent ectopy thorughout exam. The patient had frequent PACs during the exam. Left Ventricle: The left ventricle is normal in size. There is mild concentric left ventricular hypertrophy. There is no thrombus. The ejection fraction is estimated to be 65-70%. The left ventricular ejection fraction is normal. There are no focal wall motion abnormalities. Ventricular dyssynchrony during PACs. Grade I diastolic dysfunction with normal left atrial pressure. Right Ventricle: The right ventricle is normal in size and function. A moderator band is seen in the right ventricle. Atria: The left atrial size is normal. There has been no significant change since the previous study. The right atrium is mildly dilated. There is no Doppler evidence for an interatrial shunt. Mitral Valve: There is mild mitral annular calcification. The mitral valve leaflets appear to open well. There is trace mitral regurgitation. Aortic Valve: The aortic valve is trileaflet. The aortic valve is mildly calcified. There is mild aortic valve sclerosis. The aortic valve is not well visualized. The peak aortic velocity is 2.1 m/sec. The aortic valve mean gradient is 10 mmHg. The calculated aortic valve area is 2.4 cm2. The left ventricular stroke volume index is 43 ml/mA??? (normal being >35 ml/mA???). There is no hemodynamically significant valvular aortic stenosis. No aortic regurgitation is present. Tricuspid Valve: The tricuspid valve leaflets are thin and pliable. Pulmonary artery pressures cannot be estimated because of the lack of a measurable TR jet velocity but the IVC suggests a CVP of around 15 mmHg. There is trace tricuspid regurgitation. Pulmonic Valve: The pulmonic valve is not well visualized. There is no pulmonic valvular regurgitation. Great Vessels: The aortic root is mildly dilated. The ascending aorta is mild-moderately enlarged. Mild atherosclerotic plaque(s) in the aortic arch. The IVC is dilated (diameter is greater than 2.1 cm) and it collapses less than 50% with a sniff. This suggests a high right atrial pressure of 15 mm Hg. Pericardium/ Pleura There is a moderate to large pericardial effusion anterior to free wall of right ventricle with fibrinous material suggestive of exudates. Near the apex not much fluid. Behind the left posterior wall trivial to small pericardial effusion. No obvious diastolic RV and right atrial collapse. IVC is dilated. Suspect increase in intrapericardial pressure however at present no johnny cardiac tamponade. Blood pressure 159/84. In comparison to previous study, pericardial effusion is new. MMode/2D Measurements & Calculations LVIDd: 5.1 cm LVOT diam: 2.2 cm LVIDs: 3.7 cm Ao root diam: 4.3 cm FS: 26.4 % asc Aorta Diam: 4.2 cm IVSd: 1.1 cm Ao Arch Diam (Prox Trans): 2.8 cm LVPWd: 1.2 cm LV christine. diameter/BSA (cm/m^2): 2.4 LV sys. diameter/BSA (cm/m^2): 1.8 LA A2 area: 17.9 cm2 RA long axis: 6.5 cm LA A4 area: 18.3 cm2 RA area: 24.0 cm2 LA length (vol): 6.1 cm RA vol: 75.5 ml LA vol: 45.3 ml RA : 35.5 ml/m2 LA vol index: 21.2 ml/m2 IVC diam: 2.7 cm RVD1 (basal): 3.1 cm RVD2 (mid): 2.7 cm TAPSE: 1.7 cm Doppler Measurements & Calculations Ao V2 max: 212.0 cm/sec LVOT Max Javier: 128.3 cm/sec Ao V2 mean: 152.8 cm/sec LV V1 max P.7 mmHg Ao max P.0 mmHg LV V1 VTI: 25.7 cm Ao mean P.3 mmHg SATISH(I,D): 2.6 cm2 Ao V2 VTI: 38.6 cm SATISH(V,D): 2.4 cm2 sev ratio: 0.67 SATISH indexed to BSA (cm^2/m^2): 1.2 MV E max javier: 72.2 cm/sec PA V2 max: 101.9 cm/sec MV A max javier: 99.4 cm/sec PA V2 mean: 71.1 cm/sec MV E/A: 0.73 PA mean P.3 mmHg Med Peak E' Javier: 9.1 cm/sec E/E' med: 7.9 Lat Peak E' Javier: 6.5 cm/sec E/E' lat: 11.0 E/e' average: 9.5 MV dec time: 0.27 sec SV(LVOT): 101.4 ml Reading Physician:01:31 PM
[2025-06-01 06:59] LABS: INR 1.1 (0.9-1.3); Prothrombin Time 12.2 SECONDS (9.4-12.5)
--- NOTE | 2025-06-01 07:05 | PC.NURSE ---
pt resting on stretcher, pt has been ambulatory in room and back and forth to bathroom without issues, waiting for echo this am
[2025-06-01] MEDS: PANTOPRAZOLE 40 MG VIAL IV (08:10)
== END 2025-06-01 14:15 | disposition home or self-care (01) ==
PROVIDERS: Emergency Medicine; Emergency Provider Emergency Medicine; PCP Family Medicine
DX: E87.1 Hypo-osmolality and hyponatremia (principal); J90 Pleural effusion, not elsewhere classified; I31.39 Other pericardial effusion (noninflammatory); D64.9 Anemia, unspecified; R10.10 Upper abdominal pain, unspecified; M54.2 Cervicalgia
CPT/HCPCS: 36415; 71275; 74174; 80053; 81001; 82550; 83690; 83735; 83880; 84484; 85025; 85610; 85730; 93005; 93010; 93306; 96374; 99284; J2470; Q9967

== ENCOUNTER → 2025-06-03 10:36 | Outpatient (CLI) | payer MEDICARE, BC, SELFPAY ==
[2025-06-03 11:39] LABS: Blood Urea Nitrogen 20 mg/dL (9-20); Calcium 9.2 mg/dL (8.4-10.2); Carbon Dioxide 28 mmol/L (22-32); Chloride 91 mmol/L (98-107); Estimated Glomerular Filt Rate > 60 mL/min (>60); Glucose 107 mg/dL (70-99); HEMOLYSIS < 15 (0-50); Potassium 4.5 mmol/L (3.4-5.1); Sodium 127 mmol/L (137-145)
[2025-06-03 11:41] LABS: HEMOLYSIS < 15 (0-50); Iron 32 ug/dL (49-181)
[2025-06-03 11:52] LABS: Percent Iron Saturation 10 % (20-50); Total Iron Binding Capacity 314 ug/dL (261-462); Transferrin 254 mg/dL (206-381)
[2025-06-03 12:12] LABS: Ferritin 65 ng/mL (18-464)
== END ==
PROVIDERS: PCP Family Medicine; Referring Provider Family Medicine; Visit Provider Family Medicine
DX: D64.9 Anemia, unspecified (principal); I31.39 Other pericardial effusion (noninflammatory); E87.1 Hypo-osmolality and hyponatremia; R79.89 Other specified abnormal findings of blood chemistry
CPT/HCPCS: 36415; 80048; 82728; 83540; 83550; 84403

== ENCOUNTER → 2025-06-10 09:27 | Outpatient (CLI) | payer MEDICARE, BC, SELFPAY ==
--- NOTE | 2025-06-10 09:28 | DI.CT.S_ITS ---
PROCEDURE: CT CHEST WO CON INDICATIONS: hyponatremia, former smoker. ? lung cancer TECHNIQUE: Noncontrast 5 mm thick sections acquired from the pulmonary apices to the posterior costophrenic angles. 1 mm lung window, 5 mm thick coronal and sagittal and 7 mm axial MIP reformats were then acquired. For radiation dose reduction, the following was used: automated exposure control, adjustment of mA and/or kV according to patient size. COMPARISON: [facility], CT, CT ANGIO CHEST ABDOMEN PELVIS, 06/01/2025, 4:52. FINDINGS: Image quality: Diagnostic. Lower Neck: No enlarged lymph nodes. Thyroid: No thyroid nodules which require sonographic follow up, per consensus guidelines. Axillae: No enlarged lymph nodes. Chest Wall: Unremarkable. Bones: No aggressive appearing bony lesions. Lungs and Pleura: Calcified pleural plaques are again noted in bilateral lower lung duffy. Small left pleural effusion unchanged from prior study. No pneumothorax. Scarring/atelectasis scattered in posterior and lateral periphery of bilateral lower lung duffy are seen. 6 x 5 mm oval solid nodule is seen in anterolateral aspect of right middle lobe near right lung base series 3, image 175. 2 mm solid nodule is seen in right apex series 3, image 35. 2 mm solid nodule in lateral left apex is also seen series 3, image 41. Heart: Heart size is enlarged. Small to moderate pericardial effusion is seen. Thoracic Vessels: The aorta and pulmonary arteries demonstrate normal size. Mediastinum and Jeanie: No enlarged lymph nodes. Subcentimeter lymph nodes are seen scattered in mediastinum measures up to 9 mm in strut axis diameter in right paratracheal space. Esophagus: No wall thickening. No significant hiatal hernia. Upper Abdomen: Visualized upper abdomen solid organs and bowel loops appear normal. IMPRESSION: 1. Multiple sub cm nodule seen in bilateral lung duffy measures up to 6 x 5 mm in size in right middle lobe as above. CT chest follow-up in 6 months is recommended for evaluation of stability. 2. Calcified pleural plaques suggestive of prior asbestos exposure. Small left pleural effusion. Bibasilar scarring/atelectasis. 3. Small to moderate pericardial effusion and cardiomegaly. Subcentimeter lymph nodes in mediastinum as above. Almy-aj-cfejzwat atherosclerotic disease. Dictated by: Theo Jones M.D. on 06/10/2025 at 12:28 Approved by: Theo Jones M.D. on 06/10/2025 at 12:36
== END ==
PROVIDERS: PCP Family Medicine; Referring Provider Family Medicine; Visit Provider Family Medicine
DX: E87.1 Hypo-osmolality and hyponatremia (principal); I31.39 Other pericardial effusion (noninflammatory); J90 Pleural effusion, not elsewhere classified; I51.7 Cardiomegaly; R91.8 Other nonspecific abnormal finding of lung field; J92.9 Pleural plaque without asbestos; Z87.891 Personal history of nicotine dependence
CPT/HCPCS: 71250

== ENCOUNTER → 2025-06-17 15:46 | Outpatient (CLI) | payer MEDICARE, BC, SELFPAY ==
[2025-06-17 16:56] LABS: Blood Urea Nitrogen 14 mg/dL (9-20); Calcium 9.0 mg/dL (8.4-10.2); Carbon Dioxide 28 mmol/L (22-32); Chloride 86 mmol/L (98-107); Estimated Glomerular Filt Rate > 60 mL/min (>60); Glucose 103 mg/dL (70-99); HEMOLYSIS < 15 (0-50); Potassium 4.8 mmol/L (3.4-5.1); Sodium 122 mmol/L (137-145)
== END ==
PROVIDERS: PCP Family Medicine; Referring Provider Family Medicine; Visit Provider Family Medicine
DX: E87.1 Hypo-osmolality and hyponatremia (principal); M25.519 Pain in unspecified shoulder
CPT/HCPCS: 36415; 80048; 84300

== ENCOUNTER 2025-06-19 11:40 | Emergency (ER) | payer MEDICARE, BC, SELFPAY ==
[2025-06-19] VITALS (14 sets, daily range): BP systolic 139–157; BP diastolic 82–101; PULSE 60–69; RESP 14–23; TEMP 37; O2SAT 96–100; BMI 27.1
--- NOTE | 2025-06-19 11:55 | DI.RAD.S_ITS ---
PROCEDURE: XR CHEST 1V INDICATIONS: Chest Pain TECHNIQUE: One view of the chest was acquired. COMPARISON: [facility], CR, XR CHEST 1V, 07/20/2019, 22:42. FINDINGS: Surgical changes and devices: None. Lungs and pleura: There is pulmonary vascular congestion. Ill-defined opacity at left infrahilar region is seen. Small left pleural effusion. No pneumothorax. Mediastinum: Mediastinal contours appear normal. Heart size is enlarged. Bones and chest wall: No suspicious bony lesions. Overlying soft tissues appear unremarkable. IMPRESSION: Cardiomegaly and mild pulmonary vascular congestion. Trace left pleural effusion. Cannot rule out left infrahilar infiltrate versus atelectasis. No pneumothorax. Dictated by: Theo Jones M.D. on 06/19/2025 at 12:31 Approved by: Theo Jones M.D. on 06/19/2025 at 12:33
--- NOTE | 2025-06-19 11:56 | EKG_ITS ---
[facility] [id number] [place] [id number] Test Date: 2025-06-19 Pat Name: Ludwig Song Department: Room: Gender: Male Office Clerk: NITHYA : 1950 Requested By: Order Number: [id number] Reading MD: Shahriar Carmona Measurements Intervals Clay Rate: 67 P: 29 CA: 152 QRS: -3 QRSD: 78 T: -49 QT: 378 QTc: 399 Interpretive Statements Normal sinus rhythm Possible Left atrial enlargement Inferior infarct , age undetermined ST & T wave abnormality, consider anterior ischemia Electronically Signed On 06-19-2025 17:12:04 PDT by Shahriar Carmona
[2025-06-19 12:22] LABS: Add Manual Diff / Slide Review NO; Hematocrit 34.3 % (41-53); Hemoglobin 11.3 g/dL (13.5-17.5); Lymphocytes Absolute Auto 500 /uL (1100-4500); Mean Corpuscular HGB Conc 33.0 % (30-36); Mean Corpuscular Hemoglobin 26.0 PG (26-34); Mean Corpuscular Volume 78.8 fL (80-100); Platelet Count 356 X10^3/uL (150-400)
[2025-06-19 12:32] LABS: INR 1.1 (0.9-1.3); Prothrombin Time 12.1 SECONDS (9.4-12.5)
[2025-06-19 12:34] LABS: PTT Partial Thromboplastin Tim 28 SECONDS (25.1-36.5)
--- NOTE | 2025-06-19 13:20 | ED_ITS ---
HPI - Recheck/Abnormal Lab/Rx General Chief Complaint: Recheck/Abnormal Lab/Rx Stated Complaint: Blood sodium dropping sent from PCP Time Seen by Provider: 06/19/25 11:52 Source: patient Mode of arrival: Ambulatory History of Present Illness HPI narrative: Patient is 75-year-old male history of hyponatremia moderate to large pericardial effusion presenting today with hot flashes some dizziness blood pressure spiked. This has been ongoing I had referenced by his PCP no on June 17. He had recent blood work on June 17 that showed hyponatremia sodium 122. It was recommended he come to the ED for further evaluation now. He has not passed out he has no further chest pain no shortness of breath he has already been seen by Cardiology for his pericardial effusion he has been started on colchicine and indomethacin and nebivolol. He has tried increasing his electrolytes drinking more liquid IV. Sounds like today with concerns hyponatremia. Patient also reports that he has had ongoing brain fog and sometimes some balance issues has been going on for a month it is not any worse today. Related Data Home Medications ?Medication ?Instructions ?Recorded ?Confirmed omeprazole magnesium 20 mg 20 mg PO DAILY 10/24/1904/04 tablet,delayed release (Prilosec OTC) Held on 06/17/25. Instructions: hyponatremia ascorbic acid (vitamin C) 1,000 mg 1 g PO Q6H 03/13/23 06/17/25 capsule cholecalciferol (vitamin D3) 125 125 mcg PO DAILY 12/0106/17/25 mcg (5,000 unit) capsule atorvastatin 10 mg tablet 10 mg PO DAILY 06/17/2504/04 colchicine 0.6 mg tablet 0.6 mg PO BID Pericarditis 1 06/17/25 indomethacin 50 mg capsule 50 mg PO BID Pericarditis 1 06/17/25 nebivolol 10 mg tablet 5 mg PO DAILY 06/17/2506/17 Previous Rx's ?Medication ?Instructions ?Recorded testosterone cypionate 200 mg/mL 80 mg (0.4 mL) IM Q2W #10 mL 07/23/24 intramuscular oil cetirizine 10 mg tablet (Zyrtec) 10 mg PO DAILY PRN al lergy 06/03/25 symptoms #90 tabs fluticasone propionate 50 2 spray intranasal DAILY PRN nasal 06/03/25 mcg/actuation nasal congestion #16 grams spray,suspension (Flonase Allergy Relief) Allergies Allergy/AdvReac Type Severity Reaction Status Date / Time latex (LATEX) Allergy Mild Rash Verified 06/19/25 11:49 meperidine (MEPERIDINE) Allergy Mild SKIN RASH Verified 06/19/25 11:49 Patient History Medical History (Updated 06/19/25 @ 14:40 by Sarah Lynn DO) Enlarged aorta Pulmonary nodules Long-term current use of testosterone replacement therapy History of tobacco use History of immunotherapy History of bladder cancer History of Mohs micrographic surgery for skin cancer Hx of pneumococcal pneumonia Hx of undescended testicle Melanoma (~2006) Osteoarthritis (~2009) Allergies (~1954) Abnormal chest xray (~2009) Shoulder pain (~2019) MRSA (methicillin resistant Staphylococcus aureus) (~1955) Measles (~1955) Chicken pox (~1954) Colon polyps (~2002) Low testosterone (~1995) Benign essential HTN Cataract of left eye Basal cell carcinoma Frozen shoulder Inguinal hernia Melanoma in situ (~2006) Bone spur History of epididymitis Bladder cancer Urinary urgency Constipation Bowel obstruction Gallbladder disease GERD (gastroesophageal reflux disease) Arthritis Cough History of pneumonia Hyperlipemia Surgical History (Updated 06/14/25 @ 16:58 by Alexis Bower DO) Hx of bilateral cataract extraction History of transurethral resection of bladder tumor (TURBT) Hx of inguinal hernia repair Hx of shoulder surgery History of testicular surgery History of epididymectomy Hx of cholecystectomy Hx of cystoscopy Anesthesia History of orchiectomy, bilateral History of YAG laser capsulotomy of lens of left eye Hx of transurethral destruction of bladder lesion History of umbilical hernia repair History of ERCP H/O varicose vein ligation Hx of tonsillectomy Family History Father Diabetes mellitus Migraines Brother Crohn's disease Mother Cancer Social History marital status: number of children: 4 household members: spouse lives independently: Yes occupational status: previously employed Tobacco: How many years used: 7 alcohol intake: current substance use type: does not use caffeine: No Type(s) of exercise: other frequency: 3-4 times per week duration: > 90 minutes/day alcohol intake frequency: a few times a week Exam Initial Vital Signs Initial Vital Signs: Vital Signs Temperature 98.6 F 06/19/25 11:45 Pulse Rate 69 06/19/25 11:45 Respiratory Rate 16 06/19/25 11:45 Blood Pressure 153/84 H 06/19/25 11:45 Pulse Oximetry 98 06/19/25 11:45 Oxygen Delivery Method Room Air 06/19/25 11:45 GENERAL: Well-appearing, well-nourished and in no acute distress. HEENT: Head atraumatic,EOMI, pupils reactive, face symmetric, moist mucous membranes CARDIOVASCULAR: Regular rate and rhythm without murmurs, rubs or gallops. Slightly distant heart sounds RESPIRATORY: Breath sounds equal bilaterally, no wheezes rales or rhonchi. ABDOMEN: Soft, nontender. Normoactive bowel sounds all 4 quadrants. No guarding or rebound. : No CVA tenderness EXTREMITIES: Normal range of motion, no clubbing or edema. Neurovascularly intact NEUROLOGICAL: Alert and oriented x4.Normal gait and speech. Cranial nerves II through XII grossly intact. SKIN: Warm, dry, no laceration, no petechiae, no rashes or lesions. Scores NIH Stroke Scale Level of Conciousness: Alert, keenly responsive Ask month/age: Answers both questions correctly. Open/close eyes, close hand: Performs both tasks correctly Best gaze horizontal: Normal Visual duffy: No visual loss Facial palsy: Normal symetrical movement Left arm drift: No drift for full 10 sec Right arm drift: No drift for full 10 sec Left leg drift: No drift for full 5 sec Right leg drift: No drift for full 5 sec Limb ataxia: Absent Sensory on face/arms/legs: Normal, no sensory loss Best language: No aphasia, normal Dysarthria: Normal Extinction or inattention: No abnormality Total NIH Stroke scale score: 0 Course Orders Ordered: ED Orders 06/19/25 11:55 XR chest 1V Stat EKG-12 Lead Stat 06/19/25 12:07 Complete Blood Count AUTO DIFF Stat Comprehensive Metabolic Panel Stat Lipase Stat Magnesium Stat NT-proBNP (BNP-Adult 18+) Stat PTT Partial Thromboplastin Hunter Stat Prothrombin Time INR Stat Troponin & CK Cardiac Panel Stat 06/19/25 14:43 CT head/brain wo con Stat Discontinued Medications Aspirin (Aspirin 81 Mg Chew Tab) 324 mg PO NOW ONE Stop: 06/19/25 11:56 Last Admin: 06/19/25 12:28 Dose: Not Given Documented By: GW Vital Signs Vital signs: Vital Signs - 8 hr 06/19/25 11:45 06/19/25 11:49 06/19/25 11:57 Temperature 98.6 F Pulse Rate 69 Respiratory Rate 16 Blood Pressure 153/84 H 154/82 H Pulse Oximetry 98 100 Oxygen Delivery Method Room Air 06/19/25 11:58 06/19/25 11:58 06/19/25 12:00 Temperature Pulse Rate 67 Respiratory Rate 15 Blood Pressure 142/89 H 148/85 H Pulse Oximetry 98 Oxygen Delivery Method 06/19/25 12:00 06/19/25 12:30 06/19/25 12:30 Temperature Pulse Rate 67 62 Respiratory Rate 17 22 Blood Pressure 150/89 H Pulse Oximetry 98 97 Oxygen Delivery Method 06/19/25 13:00 06/19/25 13:00 06/19/25 13:30 Temperature Pulse Rate 61 Respiratory Rate 19 Blood Pressure 139/87 157/95 H Pulse Oximetry 96 Oxygen Delivery Method 06/19/25 13:30 06/19/25 14:02 06/19/25 14:03 Temperature Pulse Rate 64 61 61 Respiratory Rate 17 14 22 Blood Pressure Pulse Oximetry 97 98 Oxygen Delivery Method 06/19/25 14:03 06/19/25 14:30 06/19/25 14:30 Temperature Pulse Rate 60 Respiratory Rate 17 Blood Pressure 140/86 148/85 H Pulse Oximetry 97 Oxygen Delivery Method 06/19/25 14:52 06/19/25 14:52 06/19/25 15:00 Temperature Pulse Rate 64 Respiratory Rate 19 Blood Pressure 152/101 H 148/89 H Pulse Oximetry 97 Oxygen Delivery Method 06/19/25 15:00 06/19/25 15:30 06/19/25 15:30 Temperature Pulse Rate 60 61 Respiratory Rate 20 23 Blood Pressure 150/87 H Pulse Oximetry 98 99 Oxygen Delivery Method MDM - Recheck/Abnormal Lab/Rx Lab Data 06/19/25 12:07 06/19/25 12:07 Labs: Lab Results 06/19/25 Range/Units 12:07 WBC 5.7 (4.5-11.0) X10^3/uL RBC 4.36 L (4.5-5.9) X10^6/uL Hgb 11.3 L (13.5-17.5) g/dL Hct 34.3 L (41-53) % MCV 78.8 L (80-100) fL MCH 26.0 (26-34) PG MCHC 33.0 (30-36) % RDW 16.4 H (11.6-14.8) % Plt Count 356 (150-400) X10^3/uL Neut % (Auto) 76.6 H (50-75) % Lymph % (Auto) 8.6 L (25-40) % [place] % (Auto) 10.2 (3-14) % Eos % (Auto) 4.0 (2-4) % Baso % (Auto) 0.6 (0-2) % Neut # (Auto) 4300 (9654-9588) /uL Lymph # (Auto) 500 L (0596-7634) /uL [place] # (Auto) 600 (0-900) /uL Eos # (Auto) 200 (0-450) /uL Baso # (Auto) 0 (0-100) /uL PT 12.1 (9.4-12.5) SECONDS INR 1.1 (0.9-1.3) APTT 28 (25.1-36.5) SECONDS Sodium 127 L (137-145) mmol/L Potassium 4.8 (3.4-5.1) mmol/L Chloride 92 L (98-107) mmol/L Carbon Dioxide 25 (22-32) mmol/L BUN 21 H (9-20) mg/dL Creatinine 0.73 (0.66-1.25) mg/dL Estimated GFR > 60 (>60) mL/min BUN/Creatinine Ratio 28.8 H (6-22) Glucose 107 H (70-99) mg/dL Calcium 9.0 (8.4-10.2) mg/dL Magnesium 1.8 (1.6-2.3) mg/dL Total Bilirubin 0.6 (0.2-1.3) mg/dL AST 40 (17-59) IU/L ALT 32 (<50) IU/L Alkaline Phosphatase 74 (38-126) U/L Total Creatine Kinase 21 L (55-170) U/L Troponin I < 0.012 (0.01-0.034) ng/mL NT-Pro-B Natriuret Pep 320 (<450) pg/mL Total Protein 7.0 (6.3-8.2) g/dL Albumin 3.8 (3.5-5.0) g/dL Globulin 3.2 (1.7-4.1) g/dL Albumin/Globulin Ratio 1.2 (1.0-2.8) Lipase 114 (23-300) U/L Imaging Data CT scan - head: Radiologist's Impression: PROCEDURE: CT HEAD/BRAIN WO CON INDICATIONS: difficulty getting words out for weeks TECHNIQUE: Noncontrast 4.5 mm thick angled axial sections acquired from the foramen magnum to the vertex, with coronal and sagittal reformats. For radiation dose reduction, the following was used: automated exposure control, adjustment of mA and/or kV according to patient size. COMPARISON: None. FINDINGS: Image quality: Diagnostic. CSF spaces: Basal cisterns are patent. No extra-axial fluid collections. The ventricles are symmetric in size and shape. Brain: No intracranial bleeds or mass effect. There is cerebral volume loss, with resultant ventricular and sulcal prominence. There are periventricular and deep white matter chronic small vessel ischemic changes. There is intracranial internal carotid artery atherosclerosis. Skull and face: Calvarium and visualized facial bones appear intact, without suspicious lesions. Sinuses: Visualized sinuses and mastoids are clear. IMPRESSION: No acute intracranial pathology. Age related volume loss and mild white matter small vessel chronic ischemic changes. Dictated by: Theo Jones M.D. on 06/19/2025 at 14:56 Chest x-ray: Radiologist's Impression: PROCEDURE: XR CHEST 1V INDICATIONS: Chest Pain TECHNIQUE: One view of the chest was acquired. COMPARISON: [facility], , XR CHEST 1V, 07/20/2019, 22:42. FINDINGS: Surgical changes and devices: None. Lungs and pleura: There is pulmonary vascular congestion. Ill-defined opacity at left infrahilar region is seen. Small left pleural effusion. No pneumothorax. Mediastinum: Mediastinal contours appear normal. Heart size is enlarged. Bones and chest wall: No suspicious bony lesions. Overlying soft tissues appear unremarkable. IMPRESSION: Cardiomegaly and mild pulmonary vascular congestion. Trace left pleural effusion. Cannot rule out left infrahilar infiltrate versus atelectasis. No pneumothorax. Dictated by: Theo Jones M.D. on 06/19/2025 at 12:31 ECG Data Attestation: I personally reviewed and interpreted this ECG as follows: Prior ECG tracings: available for review Interpretation: Sinus rhythm rate 67 AL interval 152 QRS [address] changes MDM Narrative Medical decision making narrative: VANIA CC: Hyponatremia Complicating co-morbidities: Pericardial effusion hypertension Data collected from: Patient Medical records reviewed: Recent ED visit echocardiogram and PCP visit Echo from 06/01/2025 shows EF of 65-70%, aortic root mildly dilated moderate to large pericardial effusion anterior to free wall of right ventricle with fibrinous material suggestive of exudate. Near apex not much fluid behind left posterior wall trivial small pericardial effusion, no obvious diastolic right ventricle right atrial collapsed IVC dilated, no evidence of tamponade Differential considered: Hyponatremia electrolyte abnormality Exam documented above, pertinent findings include: Alert very well-appearing 75-year-old male neurologically intact slightly Lab Test results independently reviewed as above. Pertinent findings: CBC no leukocytosis no anemia platelets are 356 CMP sodium is 127 previously 122 potassium 4.8 chloride 92 carbon dioxide 25 BUN 21 creatinine 0.73 glucose 107 Troponin negative BNP 320 Bilirubin liver enzymes within normal limits Independently reviewed EKG as above sinus rhythm no ischemia no evidence of tamponade Imaging studies independently reviewed: Head CT no intracranial process Chest x-ray cardiomegaly with mild pulmonary vascular congestion and trace pleural effusion Consultations: None Treatments: Not Re-evaluations: [ ] Discussion: Patient 75-year-old male neurovascularly intact but complains of some brain fog and difficulty finding words although she he has not NIH of 0. History of hyponatremia sodium today is back up to 127 without any other electrolyte abnormality. No evidence of infection. Troponin is negative. It sounds as though he has been having these symptoms off and on for a month or more. He is followed closely by Cardiology on regimen for pericardial effusion. This does not seem to be the issue today. He is actually working with a PCP office to get an appointment for next week and will have repeat blood work at time. at bedside discussed discharge plan and close follow-up both agree with this plan. Discharge Plan Departure Patient Disposition: Home Clinical Impression: Acute hyponatremia Instructions: DI for Hyponatremia Activity Restrictions/Additional Instructions: *You have been diagnosed with hyponatremia *What to do: Have blood work rechecked with your primary care *Continue to take medications as directed *Follow up with your primary care provider in 2-3 days or call [phone] *Return to ER if you should have increased weakness chest pain shortness of breath or any new, worsening or concerning symptoms Prescriptions: No Action testosterone cypionate 200 mg/mL oil 80 mg IM Q2W Qty: 10 0RF cetirizine [Zyrtec] 10 mg tablet 10 mg PO DAILY PRN (Reason: allergy symptoms) Qty: 90 3RF fluticasone propionate [Flonase Allergy Relief] 50 mcg/actuation spray,suspension 2 spray intranasal DAILY PRN (Reason: nasal congestion) Qty: 16 11RF Rx Instructions: administer into each nostril atorvastatin 10 mg tablet 10 mg PO DAILY indomethacin 50 mg capsule 50 mg PO BID colchicine 0.6 mg tablet 0.6 mg PO BID nebivolol 10 mg tablet 5 mg PO DAILY omeprazole magnesium [Prilosec OTC] 20 mg Tablet,Delayed Release (Dr/Ec) 20 mg PO DAILY cholecalciferol (vitamin D3) 125 mcg (5,000 unit) capsule 125 mcg PO DAILY ascorbic acid (vitamin C) 1,000 mg capsule 1 g PO Q6H Referrals: Alexis Bower DO [Primary Care Provider, Family Practice] Stand Alone Forms: Patient Portal/API
[2025-06-19 13:22] LABS: Alanine Aminotransferase 32 IU/L (<50); Albumin 3.8 g/dL (3.5-5.0); Albumin Globulin Ratio 1.2 (1.0-2.8); Alkaline Phosphatase 74 U/L (38-126); Blood Urea Nitrogen 21 mg/dL (9-20); Calcium 9.0 mg/dL (8.4-10.2); Carbon Dioxide 25 mmol/L (22-32); Chloride 92 mmol/L (98-107); Creatine Kinase 21 U/L (55-170); Estimated Glomerular Filt Rate > 60 mL/min (>60); Globulin 3.2 g/dL (1.7-4.1); Glucose 107 mg/dL (70-99); Lipase 114 U/L (23-300); Magnesium 1.8 mg/dL (1.6-2.3); Potassium 4.8 mmol/L (3.4-5.1); Sodium 127 mmol/L (137-145); Total Protein 7.0 g/dL (6.3-8.2)
[2025-06-19 13:23] LABS: HEMOLYSIS 69 (0-50)
[2025-06-19 13:34] LABS: NT-proBNP (BNP-Adult 18+) 320 pg/mL (<450); Troponin I < 0.012 ng/mL (0.01-0.034)
--- NOTE | 2025-06-19 14:43 | DI.CT.S_ITS ---
PROCEDURE: CT HEAD/BRAIN WO CON INDICATIONS: difficulty getting words out for weeks TECHNIQUE: Noncontrast 4.5 mm thick angled axial sections acquired from the foramen magnum to the vertex, with coronal and sagittal reformats. For radiation dose reduction, the following was used: automated exposure control, adjustment of mA and/or kV according to patient size. COMPARISON: None. FINDINGS: Image quality: Diagnostic. CSF spaces: Basal cisterns are patent. No extra-axial fluid collections. The ventricles are symmetric in size and shape. Brain: No intracranial bleeds or mass effect. There is cerebral volume loss, with resultant ventricular and sulcal prominence. There are periventricular and deep white matter chronic small vessel ischemic changes. There is intracranial internal carotid artery atherosclerosis. Skull and face: Calvarium and visualized facial bones appear intact, without suspicious lesions. Sinuses: Visualized sinuses and mastoids are clear. IMPRESSION: No acute intracranial pathology. Age related volume loss and mild white matter small vessel chronic ischemic changes. Dictated by: Theo Jones M.D. on 06/19/2025 at 14:56 Approved by: Theo Jones M.D. on 06/19/2025 at 14:57
== END 2025-06-19 16:00 | disposition home or self-care (01) ==
PROVIDERS: Emergency Provider Emergency Medicine; PCP Family Medicine
DX: E87.1 Hypo-osmolality and hyponatremia (principal); R42 Dizziness and giddiness; R07.9 Chest pain, unspecified
CPT/HCPCS: 36415; 70450; 71045; 80053; 82550; 83690; 83735; 83880; 84484; 85025; 85610; 85730; 93005; 99283; 99284

== ENCOUNTER → 2025-06-30 14:11 | Outpatient (CLI) | payer MEDICARE, BC, SELFPAY ==
[2025-06-30 15:53] LABS: Blood Urea Nitrogen 20 mg/dL (9-20); Calcium 9.3 mg/dL (8.4-10.2); Carbon Dioxide 30 mmol/L (22-32); Chloride 98 mmol/L (98-107); Estimated Glomerular Filt Rate > 60 mL/min (>60); Glucose 105 mg/dL (70-99); HEMOLYSIS < 15 (0-50); Potassium 4.7 mmol/L (3.4-5.1); Sodium 133 mmol/L (137-145)
== END ==
PROVIDERS: PCP Family Medicine; Referring Provider Surgery; Visit Provider Surgery
DX: E87.1 Hypo-osmolality and hyponatremia (principal); D50.9 Iron deficiency anemia, unspecified
CPT/HCPCS: 36415; 80048

== ENCOUNTER → 2025-07-02 13:19 | Outpatient (CLI) | payer MEDICARE, BC, SELFPAY | PROVIDERS: PCP Family Medicine; Referring Provider Surgery; Visit Provider Surgery | DX: R23.2 Flushing (principal) | CPT/HCPCS: 83497 ==

== ENCOUNTER → 2025-07-18 12:06 | Outpatient (CLI) | payer MEDICARE, BC, SELFPAY ==
[2025-07-18 13:22] LABS: Hematocrit 41.4 % (41-53); Hemoglobin 13.6 g/dL (13.5-17.5); Mean Corpuscular HGB Conc 32.8 % (30-36); Mean Corpuscular Hemoglobin 26.5 PG (26-34); Mean Corpuscular Volume 80.7 fL (80-100); Platelet Count 290 X10^3/uL (150-400)
[2025-07-18 13:48] LABS: Blood Urea Nitrogen 24 mg/dL (9-20); Calcium 9.4 mg/dL (8.4-10.2); Carbon Dioxide 30 mmol/L (22-32); Chloride 99 mmol/L (98-107); Estimated Glomerular Filt Rate > 60 mL/min (>60); Glucose 94 mg/dL (70-99); HEMOLYSIS < 15 (0-50); Potassium 4.8 mmol/L (3.4-5.1); Sodium 136 mmol/L (137-145)
== END ==
LOC: LAB 12:07
PROVIDERS: PCP Family Medicine; Referring Provider Family Medicine; Visit Provider Family Medicine
DX: E87.1 Hypo-osmolality and hyponatremia (principal); D64.9 Anemia, unspecified
CPT/HCPCS: 36415; 80048; 85027

== ENCOUNTER → 2025-08-11 07:03 | Outpatient (CLI) | payer MEDICARE, BC, SELFPAY ==
[2025-08-11 07:56] LABS: Hematocrit 42.5 % (41-53); Hemoglobin 14.2 g/dL (13.5-17.5); Mean Corpuscular HGB Conc 33.4 % (30-36); Mean Corpuscular Hemoglobin 27.7 PG (26-34); Mean Corpuscular Volume 82.8 fL (80-100); Platelet Count 276 X10^3/uL (150-400)
[2025-08-11 08:13] LABS: Blood Urea Nitrogen 27 mg/dL (9-20); Calcium 9.2 mg/dL (8.4-10.2); Carbon Dioxide 25 mmol/L (22-32); Chloride 104 mmol/L (98-107); Cholesterol 125 mg/dL (140-199); Estimated Glomerular Filt Rate > 60 mL/min (>60); Glucose 102 mg/dL (70-99); HDL Cholesterol 37 mg/dL (40-60); HEMOLYSIS < 15 (0-50); Potassium 4.4 mmol/L (3.4-5.1); Sodium 135 mmol/L (137-145); Triglycerides 180 mg/dL (35-150)
--- NOTE | 2025-08-11 14:49 | DI.ECHO.S_ITS ---
[facility] : : [address] : [place] : : [id number] : : Phone: [phone] Echocardiogram Report + + :Name: LAURA SANCHEZ Study Date: 08/11/2025 Height: 73 in : :Hospital ReadingLocation: Weight: 192 lb : : Gender: Male BSA: 2.1 m2 : :: 1950 Age: 75 yrs BP: 140/80 mmHg: :Reason For Study: Pericardial Effusion : :Ordering Physician: LEA, : :SERGEY Performed By: Tom Luis : :Referring: SERGEY FARR : + + Interpretation Summary There is no pericardial effusion. Compared to the Echo done 06/01/2025, pericardial effusion has resolved on this study. Procedure: A two-dimensional transthoracic echocardiogram with color flow and Doppler was performed in limited views only to assess pericardial effusion. The study quality was technically adequate. Comparison is made with the echocardiogram of 06/01/2025. The heart rate ranged between 60-65 bpm during the study. Left Ventricle: The ejection fraction is estimated to be 60-65%. Mitral Valve: There is trace mitral regurgitation. Aortic Valve: There is no aortic regurgitation. Tricuspid Valve: There is trace tricuspid regurgitation. Great Vessels: The IVC is of normal diameter and collapses greater than 50% with a sniff. This suggests a low right atrial pressure of 3 mm Hg. Pericardium/ Pleura There is an anterior echo-free space consistent with a fat pad. There is no pericardial effusion. Reading Physician:04:45 PM
== END ==
PROVIDERS: PCP Family Medicine; Referring Provider Family Medicine; Visit Provider Internal Medicine Cardiovascular Disease
DX: E87.1 Hypo-osmolality and hyponatremia (principal); I25.10 Atherosclerotic heart disease of native coronary artery without angina pectoris
CPT/HCPCS: 36415; 80048; 80061; 85027; 93307

== ENCOUNTER → 2025-08-20 13:28 | Outpatient (CLI) | payer MEDICARE, BC, SELFPAY | PROVIDERS: PCP Family Medicine; Referring Provider Family Medicine; Visit Provider Family Medicine | DX: D64.9 Anemia, unspecified (principal); I31.39 Other pericardial effusion (noninflammatory); E87.1 Hypo-osmolality and hyponatremia; R79.89 Other specified abnormal findings of blood chemistry | CPT/HCPCS: 82274 ==

== ENCOUNTER → 2025-08-25 07:10 | Outpatient (CLI) | payer MEDICARE, BC, SELFPAY ==
[2025-08-25 07:44] LABS: Alanine Aminotransferase 24 IU/L (<50); Albumin 3.7 g/dL (3.5-5.0); Albumin Globulin Ratio 1.5 (1.0-2.8); Alkaline Phosphatase 53 U/L (38-126); Blood Urea Nitrogen 27 mg/dL (9-20); Calcium 9.4 mg/dL (8.4-10.2); Carbon Dioxide 28 mmol/L (22-32); Chloride 104 mmol/L (98-107); Estimated Glomerular Filt Rate > 60 mL/min (>60); Globulin 2.4 g/dL (1.7-4.1); Glucose 123 mg/dL (70-99); HEMOLYSIS < 15 (0-50); Potassium 4.3 mmol/L (3.4-5.1); Sodium 137 mmol/L (137-145); Total Protein 6.1 g/dL (6.3-8.2)
[2025-08-25 07:46] LABS: Add Manual Diff / Slide Review NO; Hematocrit 42.6 % (41-53); Hemoglobin 14.3 g/dL (13.5-17.5); Lymphocytes Absolute Auto 1200 /uL (1100-4500); Mean Corpuscular HGB Conc 33.7 % (30-36); Mean Corpuscular Hemoglobin 28.0 PG (26-34); Mean Corpuscular Volume 83.1 fL (80-100); Platelet Count 278 X10^3/uL (150-400)
[2025-08-25 08:07] LABS: Anisocytosis 1+; Ovalocytes 1+
[2025-08-25 08:16] LABS: Prostate Specific Antigen 1.43 ng/mL (0.10-4.00)
== END ==
PROVIDERS: PCP Family Medicine; Referring Provider Family Medicine; Visit Provider Urology
DX: R39.9 Unspecified symptoms and signs involving the genitourinary system (principal); R79.89 Other specified abnormal findings of blood chemistry; Z85.51 Personal history of malignant neoplasm of bladder; Z79.890 Hormone replacement therapy
CPT/HCPCS: 36415; 80053; 84153; 84403; 85025

== ENCOUNTER → 2025-09-03 08:41 | Outpatient (CLI) | payer MEDICARE, BC, SELFPAY ==
[2025-09-03 10:53] LABS: TSH w/ Reflex to FT4 1.90 uIU/mL (0.47-4.68)
== END ==
PROVIDERS: PCP Family Medicine; Referring Provider Family Medicine; Visit Provider Family Medicine
DX: I10 Essential (primary) hypertension (principal); R23.2 Flushing
CPT/HCPCS: 84443

== ENCOUNTER → 2025-09-09 08:27 | Outpatient (CLI) | payer MEDICARE, BC, SELFPAY | PROVIDERS: PCP Family Medicine; Referring Provider Urology; Visit Provider Urology | DX: R79.89 Other specified abnormal findings of blood chemistry (principal); Z79.890 Hormone replacement therapy; Z90.79 Acquired absence of other genital organ(s) | CPT/HCPCS: 36415; 84403 ==

== ENCOUNTER → 2025-09-09 14:56 | Outpatient (CLI) | payer MEDICARE, BC, SELFPAY ==
[2025-09-09 15:31] LABS: Hematocrit 40.2 % (41-53)
[2025-09-09 16:00] LABS: Alanine Aminotransferase 22 IU/L (<50); Albumin 3.7 g/dL (3.5-5.0); Albumin Globulin Ratio 1.5 (1.0-2.8); Alkaline Phosphatase 52 U/L (38-126); Blood Urea Nitrogen 27 mg/dL (9-20); Calcium 9.2 mg/dL (8.4-10.2); Carbon Dioxide 27 mmol/L (22-32); Chloride 104 mmol/L (98-107); Estimated Glomerular Filt Rate > 60 mL/min (>60); Globulin 2.5 g/dL (1.7-4.1); Glucose 104 mg/dL (70-99); HEMOLYSIS < 15 (0-50); Potassium 4.4 mmol/L (3.4-5.1); Sodium 138 mmol/L (137-145); Total Protein 6.2 g/dL (6.3-8.2)
[2025-09-09 16:27] LABS: Prostate Specific Antigen 1.46 ng/mL (0.10-4.00)
== END ==
PROVIDERS: PCP Family Medicine; Referring Provider Urology; Visit Provider Urology
DX: R97.20 Elevated prostate specific antigen [PSA] (principal); R79.89 Other specified abnormal findings of blood chemistry; Z90.79 Acquired absence of other genital organ(s); Z79.890 Hormone replacement therapy
CPT/HCPCS: 36415; 80053; 84153; 84403; 85014